=== PATIENT | female | born 1935 | race Two or more races ===

== ENCOUNTER 2017-02-19 17:38 | Inpatient (IN) | payer MEDICARE, MEDICAID ==
[~2017-02-19] VITALS: Ht 165.1 cm; Wt 77.1 kg
[~2017-02-19 17:38] MED LIST: METF500T4 PO; VALS160T2 PO
--- NOTE | 2017-02-19 17:45 | NUR ---
TORIN FROM HOME FOR S/P FALL WITH RIGHT EYEBROW LAC- NO KO, RIGHT ARM PAIN. SEEN BY MD FOR EVAL. PTAAOX3. DENIES OTHER PAIN. VSS. SAFETY AND COMFORT MEASURES PROVIDED. WILL MONITOR.
[2017-02-19] MEDS ORDERED: ONDANSETRON 4 MG TAB.RAPDIS SL ONE (18:30)
[2017-02-19] MEDS ORDERED: MORPHINE SULFATE INJ 2 MG/ML DISP.SYRIN IM ONE (18:30)
--- NOTE | 2017-02-19 18:30 | NUR ---
PT MEDICATED ORDERED.
[2017-02-19] MEDS ORDERED: ONDANSETRON 4 MG TAB.RAPDIS ONE (18:31)
[2017-02-19] MEDS ORDERED: MORPHINE SULFATE INJ 2 MG/ML DISP.SYRIN ONE (18:31)
[2017-02-19] MEDS ORDERED: LIDOCAINE /MPF 1% VIAL 5 ML VIAL ONE (18:58)
--- NOTE | 2017-02-19 19:18 | NUR ---
PAGED GAME PROTECTOR LUZ GARCIA FOR CONSULT
[2017-02-19 19:49] LABS: BASOPHILS % (AUTO) 0.2 % (0.0-2.0); EOSINOPHILS % (AUTO) 0.1 % (0.0-6.0); HEMATOCRIT 30 % (33-45); HEMOGLOBIN 9.8 g/dL (11.5-14.8); LYMPHOCYTES # (AUTO) 1.1 /CMM (0.8-4.8); LYMPHOCYTES % (AUTO) 13.3 % (20.0-44.0); MEAN CORPUSCULAR HEMOGLOBIN 28 PG (26.0-33.0); MEAN CORPUSCULAR HGB CONC 33 g/dl (31.0-36.0); MEAN CORPUSCULAR VOLUME 87 fL (82-100); MONOCYTES # (AUTO) 0.6 /CMM (0.1-1.30); MONOCYTES % (AUTO) 7.7 % (2.0-12.0); NEUTROPHILS # (AUTO) 6.7 /CMM (1.8-8.9); NEUTROPHILS % (AUTO) 78.7 % (43.0-81.0); PLATELET COUNT (AUTO) 248 /CMM (150-450); RDW COEFFICIENT OF VARIATION 14.1 (11.5-15.0); RED BLOOD CELL COUNT(AUTO) 3.48 MIL/uL (4.0-5.2); WHITE BLOOD COUNT (AUTO) 8.4 K/uL (4.3-11.0)
[2017-02-19] MEDS ORDERED: ACETAMINOPHEN 325 MG TABLET PO PRN (20:00)
[2017-02-19] MEDS ORDERED: MAGNESIUM HYDROXIDE 30 ML UDC PO PRN (20:00)
[2017-02-19] MEDS ORDERED: Z GUARD REMEDY 2 OZ OINT TP PRN (20:00)
[2017-02-19] MEDS ORDERED: ONDANSETRON HCL/PF 4 MG/2 ML VIAL IVP PRN (20:00)
[2017-02-19] MEDS ORDERED: MAG HYDROX/AL HYDROX/SIMETH 30 ML UDC PO PRN (20:00)
[2017-02-19] MEDS ORDERED: ZOLPIDEM TARTRATE 5 MG TABLET PO PRN (20:00)
[2017-02-19 20:03] LABS: CALCIUM, SERUM 8.6 mg/dL (8.5-10.1); CARBON DIOXIDE 26 mmol/L (21-32); CHLORIDE 103 mmol/L (98-107); CREATININE 1.3 mg/dL (0.6-1.3); GLUCOSE 197 mg/dL (74-106); POTASSIUM 4.4 mmol/L (3.5-5.1); SODIUM SERUM 138 mmol/L (136-145); UREA NITROGEN, BLOOD 27 mg/dL (7-18)
[2017-02-19 20:06] LABS: PROTHROMBIN TIME 10.4 SECS (9.5-12.7)
[2017-02-19 20:09] LABS: ALANINE AMINOTRANSFERASE 18 U/L (12-78); ALBUMIN 3.3 g/dL (3.4-5.0); ASPARTATE AMINOTRANSFERASE 19 U/L (15-37); BILIRUBIN,DIRECT 0.1 mg/dL (0.0-0.2); BILIRUBIN,TOTAL 0.3 mg/dL (0.2-1.0); TOTAL PROTEIN, SERUM 7.2 g/dL (6.4-8.2)
[2017-02-19 20:30] VITALS: BP 126/56
[2017-02-19] MEDS ORDERED: DEXTROSE 50%-WATER 50 ML DISP.SYRIN IV PRN (20:30)
[2017-02-19 20:32] LABS: ALKALINE PHOSPHATASE 54 U/L (46-116)
[2017-02-19] MEDS: IV NS 0.9% 1,000 ML IV PRN (20:48)
--- NOTE | 2017-02-19 21:00 | NUR ---
RN NOTE; ADMITTED A 81Y/O F. A, OX4, [place]URKM[place] SPEAKING. BREATHING EVENLY. NO SOB. NAD . SKIN WARM AND DRY TO TOUCH W/ R SHOULDER SLING IN PLACE. W/ A SMALL LACERATION AND BRUISES ON R EYEBROW AND EYE LID W/ ONE INTACT STITCH. W/ C/O SEVERE PAIN UPON REPOSITIONING AND ACTIVITIES OTHERWISE REMAINED PAIN FREE BY INACTIVITY. VS OBTAINED ALL WNL. LIMITED SKIN CHECK WAS PROVIDED DUE TO PAIN UPON REPOSITIONING, ALL MEDICAL INFO WERE OBTAINED FROM THE FAMILY AT THE BED SIDE DUE TO LANGUAGE BARRIER. NEEDS ATTENDED. CALL LIGHT WITHIN REACH. WILL CONT TO MONITOR AND WILL F/U W/ MD'S ORDERS.
[2017-02-19 21:30] VITALS: BP 126/56
[2017-02-19] MEDS: BLOOD SUGAR DIAGNOSTIC 1 EACH STRIP IN SCH (22:03)
[2017-02-19] MEDS: INSULIN REGULAR, HUMAN 100 UNIT/ML 3 ML VIAL SQ PRN (22:05)
[2017-02-20] MEDS ORDERED: ALPRAZOLAM 0.25 MG TABLET PO PRN (00:30)
[2017-02-20] MEDS: BLOOD SUGAR DIAGNOSTIC 1 EACH STRIP IN SCH ×4 (06:33→22:03)
[2017-02-20] MEDS: INSULIN REGULAR, HUMAN 100 UNIT/ML 3 ML VIAL SQ PRN ×3 (06:34→17:20)
--- NOTE | 2017-02-20 06:50 | NUR ---
RN NOTE; PT IN BED AWAKE AND ALERT. BREATHING EVENLY. R SHOULDER SLING IN PLACE. SKIN WARM AND DRY. NO C/O PAIN OR DISCOMFORT WHEN REMAINED UNTOUCHED AND INACTIVE. ON ONGOING IVF HYDRATION YADI WELL, NEEDS MET. CALL LIGHT WITHIN REACH, WILL CONT TO MONITOR AND WILL ENDORSE TO AM SHIFT FOR NUVIA,.
[2017-02-20 06:58] LABS: BASOPHILS % (AUTO) 0.1 % (0.0-2.0); HEMATOCRIT 27 % (33-45); HEMOGLOBIN 8.9 g/dL (11.5-14.8); LYMPHOCYTES # (AUTO) 1.2 /CMM (0.8-4.8); LYMPHOCYTES % (AUTO) 18.5 % (20.0-44.0); MEAN CORPUSCULAR HEMOGLOBIN 29 PG (26.0-33.0); MEAN CORPUSCULAR HGB CONC 33 g/dl (31.0-36.0); MEAN CORPUSCULAR VOLUME 86 fL (82-100); MONOCYTES # (AUTO) 0.6 /CMM (0.1-1.30); MONOCYTES % (AUTO) 9.7 % (2.0-12.0); NEUTROPHILS # (AUTO) 4.6 /CMM (1.8-8.9); NEUTROPHILS % (AUTO) 71.7 % (43.0-81.0); PLATELET COUNT (AUTO) 212 /CMM (150-450); RDW COEFFICIENT OF VARIATION 15.2 (11.5-15.0); RED BLOOD CELL COUNT(AUTO) 3.11 MIL/uL (4.0-5.2); WHITE BLOOD COUNT (AUTO) 6.4 K/uL (4.3-11.0)
[2017-02-20 07:25] LABS: CALCIUM, SERUM 8.1 mg/dL (8.5-10.1); CARBON DIOXIDE 23 mmol/L (21-32); CHLORIDE 105 mmol/L (98-107); CREATININE 1.3 mg/dL (0.6-1.3); GLUCOSE 186 mg/dL (74-106); MAGNESIUM 1.5 mg/dL (1.8-2.4); PHOSPHORUS 4.6 mg/dL (2.5-4.9); POTASSIUM 4.7 mmol/L (3.5-5.1); SODIUM SERUM 140 mmol/L (136-145); UREA NITROGEN, BLOOD 29 mg/dL (7-18)
--- NOTE | 2017-02-20 08:00 | NUR ---
MS RN NOTES PATIENT IN BED RESTING NO SOB OR ACUTE DISTRESS NOTED. RIGHT SHOULDER IN A SLING . PERIPHERAL IV LEFT AC INTACT PATIENT. BED IN LOW LOCKED POSITION CALL LIGHT WITHIN REACH. WILL CONTINUE TO MONITOR.
[2017-02-20] MEDS: METFORMIN 500 MG TABLET PO SCH ×2 (08:14→17:13)
[2017-02-20] MEDS: IV NS 0.9% 1,000 ML IV PRN (08:17)
[2017-02-20] MEDS: PANTOPRAZOLE 40 MG TABLET.DR PO SCH (08:17)
[2017-02-20] MEDS: VALSARTAN 80 MG TABLET PO SCH (08:17)
[2017-02-20 08:19] VITALS: BP 130/62
[2017-02-20 08:45] LABS: CHOLESTEROL 125 mg/dL (<200); HDL CHOLESTEROL 29 mg/dL (40-60); LDL 62 mg/dL (0-99); TRIGLYCERIDES 170 mg/dL (30-150)
[2017-02-20 09:52] LABS: THYROID STIMULATING HORMONE 0.19 uIU/mL (0.358-3.74)
[2017-02-20] MEDS: Magnesium 1GM/D5W 100ML PREMIX 100 ML IV SCH ×2 (10:50→11:56)
[2017-02-20] MEDS: HYDROCODONE/APAP 5/325MG 1 EACH TABLET PO PRN (11:00)
[2017-02-20] MEDS: MORPHINE SULFATE INJ 2 MG/ML DISP.SYRIN IV PRN ×2 (14:02→19:52)
[2017-02-20 16:14] VITALS: BP 129/63
--- NOTE | 2017-02-20 18:40 | NUR ---
MS RN NOTES PATIENT SEEN AND EVALUATED BY IVONE ESCOBAR HAND PAINT MIXER, ORDERS NOTED AND CARRIED OUT.
--- NOTE | 2017-02-20 19:49 | NUR ---
MS RN NOTES PATIENT IN BED RESTING WITH FAMILY AT BEDSIDE. ALL DUE MEDICATIONS ADMINISTERED. ALL NEEDS MET. PATIENTS PAIN CONTROLLED WITH MEDICATION WILL ENDORSE TO PM SHIFT NUVIA.
--- NOTE | 2017-02-20 19:56 | NUR ---
MS/RN RECEIVE PATIENT AWAKE, ALERT, ORIENTED, WITH C/O LEFT SHOULDER PAIN 10/10, MEDICATED WITH MORPHINE 2 MG IVP ORDERED, WILL MONITOR.
[2017-02-20 20:00] VITALS: BP 134/55
--- NOTE | 2017-02-20 22:00 | NUR ---
MS/RN BLOOD SUGAR 143, PATIENT REFUSED INSULIN. WILL MONITOR.
--- NOTE | 2017-02-21 | NUR ---
MS/RN PATIENT IS SLEEPING AT THIS TIME, AROUSABLE, APPEAR COMFORTABLE, NO SIGNS OF DISTRESS NOTED, CALL LIGHT IN REACH. WILL CONTINUE TO MONITOR.
[2017-02-21] MEDS: IV NS 0.9% 1,000 ML IV PRN ×2 (00:35→14:41)
--- NOTE | 2017-02-21 06:16 | NUR ---
MS/RN APPEAR SLEEPING, APPEAR COMFORTABLE, NO SIGNS OF DISTRESS NOTED, CALL LIGHT IN REACH. WILL CONTINUE TO MONITOR. ALL NEEDS ATTENDED AT THIS TIME. WILL CONTINUE TO MONITOR.
[2017-02-21 06:24] LABS: BASOPHILS % (AUTO) 0.1 % (0.0-2.0); HEMATOCRIT 24 % (33-45); LYMPHOCYTES % (AUTO) 12.8 % (20.0-44.0); MEAN CORPUSCULAR HEMOGLOBIN 29 PG (26.0-33.0); MEAN CORPUSCULAR HGB CONC 34 g/dl (31.0-36.0); MEAN CORPUSCULAR VOLUME 85 fL (82-100); MONOCYTES # (AUTO) 0.9 /CMM (0.1-1.30); MONOCYTES % (AUTO) 11.4 % (2.0-12.0); NEUTROPHILS # (AUTO) 5.9 /CMM (1.8-8.9); NEUTROPHILS % (AUTO) 75.7 % (43.0-81.0); PLATELET COUNT (AUTO) 194 /CMM (150-450); RDW COEFFICIENT OF VARIATION 15.3 (11.5-15.0); RED BLOOD CELL COUNT(AUTO) 2.76 MIL/uL (4.0-5.2); WHITE BLOOD COUNT (AUTO) 7.8 K/uL (4.3-11.0)
[2017-02-21 06:44] LABS: CALCIUM, SERUM 7.9 mg/dL (8.5-10.1); CREATININE 1.3 mg/dL (0.6-1.3); GLUCOSE 275 mg/dL (74-106); MAGNESIUM 1.8 mg/dL (1.8-2.4); UREA NITROGEN, BLOOD 20 mg/dL (7-18)
[2017-02-21 06:49] LABS: CARBON DIOXIDE 23 mmol/L (21-32); CHLORIDE 104 mmol/L (98-107); POTASSIUM 4.3 mmol/L (3.5-5.1); SODIUM SERUM 138 mmol/L (136-145)
[2017-02-21] MEDS: INSULIN REGULAR, HUMAN 100 UNIT/ML 3 ML VIAL SQ PRN ×4 (06:53→22:03)
[2017-02-21 08:00] VITALS: BP 125/65
--- NOTE | 2017-02-21 08:00 | NUR ---
RN MS NOTES PATIENT LAYING IN BED, AWAKE. NO ACUTE DISTRESS OR SOB NOTED. PERIPHERAL LINE ON LFA, INTACT PATENT. HAS RIGHT ARM SLING ON. BED IN LOW LOCKED POSITION. CALL LIGHT IN REACH. CONTINUING TO MONITOR.
[2017-02-21] MEDS: METFORMIN 500 MG TABLET PO SCH ×2 (08:35→16:58)
[2017-02-21] MEDS: PANTOPRAZOLE 40 MG TABLET.DR PO SCH (08:35)
[2017-02-21] MEDS: BLOOD SUGAR DIAGNOSTIC 1 EACH STRIP IN SCH ×4 (08:40→21:23)
[2017-02-21] MEDS: VALSARTAN 80 MG TABLET PO SCH (08:40)
[2017-02-21] MEDS: MORPHINE SULFATE INJ 2 MG/ML DISP.SYRIN IV PRN (08:51)
--- NOTE | 2017-02-21 10:30 | NUR ---
MS RN NOTES PATIENT SEEN AND EVALUATED BY EMMANUEL SMITH HOME HOS[facility] AIDE ORDERS NOTED AND CARRIED OUT.
[2017-02-21] MEDS: HYDROCODONE/APAP 10/325MG 1 EA TABLET PO PRN ×2 (14:26→21:24)
[2017-02-21 16:06] VITALS: BP 134/74
[2017-02-21] MEDS: HYDROCODONE/APAP 5/325MG 1 EACH TABLET PO PRN (16:58)
--- NOTE | 2017-02-21 18:33 | NUR ---
RN MS NOTES PATIENT SLEEPING IN BED. ALL NEEDS MET. ADMINISTERED ALL MEDS ORDERED. PAIN MANAGEMENT DONE, PRN MEDS GIVEN. HAS RIGHT ARM SLING ON FOR IMMOBILIZATION. WILL ENDORSE TO PM SHIFT.
--- NOTE | 2017-02-21 19:30 | NUR ---
RN NOTES RECEIVED PATIENT IN BED AWAKE, AO X 3, ABLE TO MAKE NEEDS KNOWN. NO ACUTE DISTRESS NOTED. BERT IN SLING. IV SITE PATENT, INTACT; IVF INFUSING ORDERED. SAFETY REMINDERS GIVEN. ON LOW BED WITH BILATERAL UPPER SIDE RAILS UP. CALL LIGHT WITHIN EASY REACH. WILL CONTINUE TO MONITOR.
[2017-02-21 20:00] VITALS: BP_SYST 129; BP_SYST 147; BP_DIAS 52; BP_DIAS 90
[2017-02-22] MEDS: IV NS 0.9% 1,000 ML IV PRN (05:29)
[2017-02-22] MEDS: HYDROCODONE/APAP 10/325MG 1 EA TABLET PO PRN (05:36)
--- NOTE | 2017-02-22 06:04 | NUR ---
RN NOTES PATIENT ASLEEP, EASILY AROUSABLE. RESPIRATIONS EVEN. NO SIGNS OF PAIN NOTED. DUE MED GIVEN WITH NO ASE NOTED. NEEDS ATTENDED. SAFETY PRECAUTIONS AND COMFORT MEASURES IN PLACE. WILL GIVE REPORT TO DAY SHIFT FOR CONTINUITY OF CARE.
[2017-02-22 06:23] LABS: BASOPHILS % (AUTO) 0.1 % (0.0-2.0); EOSINOPHILS % (AUTO) 0.1 % (0.0-6.0); HEMATOCRIT 23 % (33-45); HEMOGLOBIN 7.7 g/dL (11.5-14.8); LYMPHOCYTES # (AUTO) 1.5 /CMM (0.8-4.8); LYMPHOCYTES % (AUTO) 17.6 % (20.0-44.0); MEAN CORPUSCULAR HEMOGLOBIN 29 PG (26.0-33.0); MEAN CORPUSCULAR HGB CONC 34 g/dl (31.0-36.0); MEAN CORPUSCULAR VOLUME 87 fL (82-100); NEUTROPHILS # (AUTO) 6.1 /CMM (1.8-8.9); NEUTROPHILS % (AUTO) 70.2 % (43.0-81.0); PLATELET COUNT (AUTO) 223 /CMM (150-450); RDW COEFFICIENT OF VARIATION 15.4 (11.5-15.0); RED BLOOD CELL COUNT(AUTO) 2.64 MIL/uL (4.0-5.2); WHITE BLOOD COUNT (AUTO) 8.7 K/uL (4.3-11.0)
[2017-02-22 06:46] LABS: CALCIUM, SERUM 7.9 mg/dL (8.5-10.1); CARBON DIOXIDE 23 mmol/L (21-32); CHLORIDE 105 mmol/L (98-107); CREATININE 1.1 mg/dL (0.6-1.3); GLUCOSE 220 mg/dL (74-106); POTASSIUM 4.3 mmol/L (3.5-5.1); SODIUM SERUM 138 mmol/L (136-145); UREA NITROGEN, BLOOD 19 mg/dL (7-18)
[2017-02-22] MEDS: INSULIN REGULAR, HUMAN 100 UNIT/ML 3 ML VIAL SQ PRN ×3 (06:48→17:07)
[2017-02-22] MEDS: BLOOD SUGAR DIAGNOSTIC 1 EACH STRIP IN SCH ×3 (06:51→16:59)
--- NOTE | 2017-02-22 07:38 | NUR ---
ms rn received on bed, awake,alert,oriented x3,not in any form of distress, respirations even and unlabored,no sob noted.lungs are clear,abdomen soft,positive bowel sounds, denies pain at this time. right shoulder fracture w/ sling on, waiting for the shoulder brace to be delivered, before going home.all needs attended.
[2017-02-22 08:00] VITALS: BP 139/58
--- NOTE | 2017-02-22 09:00 | NUR ---
ms rn breakfast served, did not eat that much. due meds given tolerated well.
[2017-02-22] MEDS: VALSARTAN 80 MG TABLET PO SCH (10:16)
[2017-02-22] MEDS: PANTOPRAZOLE 40 MG TABLET.DR PO SCH (10:17)
[2017-02-22] MEDS: HYDROCODONE/APAP 5/325MG 1 EACH TABLET PO PRN (10:17)
[2017-02-22] MEDS: METFORMIN 500 MG TABLET PO SCH ×2 (10:17→16:58)
--- NOTE | 2017-02-22 10:30 | NUR ---
ms rn was seen by dr. samayoa. will be discharge today.
--- NOTE | 2017-02-22 11:30 | NUR ---
rn shoulder brace was delivered. patient was seen by pt,tolerated fairly.
--- NOTE | 2017-02-22 12:00 | NUR ---
ms medina blood sugar - 244 - 4 units regular insulin was given.
[2017-02-22 16:00] VITALS: BP 141/61
--- NOTE | 2017-02-22 17:30 | NUR ---
MS RN DUE MEDS GIVEN, BS - 170 - 3 UNITS OF REGULAR INSULIN GIVEN. PATIENT READY TO GO HOME.
--- NOTE | 2017-02-22 18:00 | NUR ---
MS RN PATIENT WENT HOME ACCOMPANIED BY FAMILY, DISCHARGE INSTRUCTIONS GIVEN AND W/ PAIN PILL RX,ALL NEEDS ATTENDED.
== END 2017-02-22 18:00 | disposition home or self-care (01) | DRG 563 ==
LOC: ER 17:41 → MED 20:28
PROVIDERS: ADMIT Internal Medicine; ATTEND Internal Medicine
DX: S42.351A Displaced comminuted fracture of shaft of humerus, right arm, initial encounter for closed fracture (principal); E11.65 Type 2 diabetes mellitus with hyperglycemia; D64.9 Anemia, unspecified; E44.1 Mild protein-calorie malnutrition; S42.211A Unspecified displaced fracture of surgical neck of right humerus, initial encounter for closed fracture; I10 Essential (primary) hypertension; M48.02 Spinal stenosis, cervical region; S01.111A Laceration without foreign body of right eyelid and periocular area, initial encounter; W01.0XXA Fall on same level from slipping, tripping and stumbling without subsequent striking against object, initial encounter; Y92.009 Unspecified place in unspecified non-institutional (private) residence as the place of occurrence of the external cause; Z79.84 Long term (current) use of oral hypoglycemic drugs; Y93.01 Activity, walking, marching and hiking; M25.78 Osteophyte, vertebrae; M19.90 Unspecified osteoarthritis, unspecified site; K21.9 Gastro-esophageal reflux disease without esophagitis; I25.10 Atherosclerotic heart disease of native coronary artery without angina pectoris; E78.5 Hyperlipidemia, unspecified; M50.30 Other cervical disc degeneration, unspecified cervical region; I70.0 Atherosclerosis of aorta; R93.8 Abnormal findings on diagnostic imaging of other specified body structures
CPT/HCPCS: 36415; 70450-TC; 71010-TC; 72125-TC; 73060-TC; 73200-TC; 76536-TC; 80048-TC; 80061-TC; 80076-TC; 82962-TC; 83735-TC; 84100-TC; 84439-TC; 84443-TC; 85025-TC; 85730-TC; 87081-TC; 93307-TC; A4217; A4606; A6402; A6403; J1815; J2270; J2405; J3475; J3490; J7030; Q0162; Z7610

== ENCOUNTER 2019-02-12 17:23 | Inpatient (IN) | payer MEDICARE, MEDICAID ==
[~2019-02-12] VITALS: Ht 167.6 cm; Wt 74.4 kg
[~2019-02-12 17:23] MED LIST changes: +METF-440 PO; -METF500T4 PO
--- NOTE | 2019-02-12 17:40 | NUR ---
BIB Daughter from home "Fell last night now pain worse. Has Hx of falls in Past" Patient a/ox3, breathing even and unlabored, no sob noted, patient c/o worsening back pain. Kept comfortable, attached to the monitor. changed into gown.
[2019-02-12] MEDS ORDERED: HYDROCODONE/APAP 5/325MG 1 EACH TABLET PO ONE (18:00)
[2019-02-12] MEDS ORDERED: HYDROCODONE/APAP 5/325MG 1 EACH TABLET ONE (18:06)
[2019-02-12 18:40] LABS: BASOPHILS % (AUTO) 0.2 % (0.0-2.0); HEMATOCRIT 29 % (33-45); LYMPHOCYTES # (AUTO) 1.1 /CMM (0.8-4.8); LYMPHOCYTES % (AUTO) 17.5 % (20.0-44.0); MEAN CORPUSCULAR HGB CONC 34 g/dl (31.0-36.0); MEAN CORPUSCULAR VOLUME 84 fL (82-100); MONOCYTES # (AUTO) 0.6 /CMM (0.1-1.30); MONOCYTES % (AUTO) 9.1 % (2.0-12.0); NEUTROPHILS # (AUTO) 4.4 /CMM (1.8-8.9); NEUTROPHILS % (AUTO) 73.2 % (43.0-81.0); PLATELET COUNT (AUTO) 168 /CMM (150-450); RED BLOOD CELL COUNT(AUTO) 3.49 MIL/uL (4.0-5.2); WHITE BLOOD COUNT (AUTO) 6.1 K/uL (4.3-11.0)
[2019-02-12 18:46] LABS: CALCIUM, SERUM 8.9 mg/dL (8.5-10.1); CARBON DIOXIDE 27 mmol/L (21-32); CHLORIDE 104 mmol/L (98-107); CREATININE 1.3 mg/dL (0.6-1.3); GLUCOSE 160 mg/dL (74-106); POTASSIUM 4.7 mmol/L (3.5-5.1); SODIUM SERUM 138 mmol/L (136-145); UREA NITROGEN, BLOOD 18 mg/dL (7-18)
--- NOTE | 2019-02-12 19:00 | NUR ---
rachel at bedside for eval
[2019-02-12] MEDS ORDERED: GABA600T12 PO (19:10)
[2019-02-12] MEDS ORDERED: LOSA100T31 PO (19:10)
[2019-02-12] MEDS ORDERED: OMEP40CA37 PO (19:10)
[2019-02-12] MEDS ORDERED: METO25TA6 PO (19:10)
[2019-02-12] MEDS ORDERED: hydrALAZINE HCL IV 20 MG VIAL IV ONE (19:30)
--- NOTE | 2019-02-12 19:39 | NUR ---
Patient's blood pressure elevated Dr. Díaz aware. Patient denies chest pain or discomfort at this time. Patient endorsed to Boris ELMORE for xander.
[2019-02-12] MEDS ORDERED: hydrALAZINE HCL IV 20 MG VIAL ONE (19:59)
[2019-02-12 20:00] VITALS: BP 137/74
--- NOTE | 2019-02-12 20:15 | NUR ---
REPORT GIVEN TO CATARINA FRANK FOR NUVIA.
[2019-02-12] MEDS ORDERED: ACETAMINOPHEN 325 MG TABLET PO PRN (20:30)
[2019-02-12] MEDS ORDERED: DEXTROSE 50%-WATER 50 ML DISP.SYRIN IV PRN (20:30)
[2019-02-12] MEDS ORDERED: MAGNESIUM HYDROXIDE 30 ML UDC PO PRN (20:30)
[2019-02-12] MEDS ORDERED: Z GUARD REMEDY 2 OZ OINT TP PRN (20:30)
[2019-02-12] MEDS ORDERED: MAG HYDROX/AL HYDROX/SIMETH 30 ML UDC PO PRN (20:30)
[2019-02-12] MEDS ORDERED: ZOLPIDEM TARTRATE 5 MG TABLET PO PRN (20:30)
--- NOTE | 2019-02-12 20:54 | NUR ---
PT TRANPORTED TO UNIT ON [facility] WITH EMT. PT STABLE FOR TRANSPORT.
[2019-02-12 21:00] VITALS: BP 154/72
[2019-02-12] MEDS: IV NS 0.9% 1,000 ML IV PRN (21:03)
[2019-02-12] MEDS: ENOXAPARIN SODIUM 40 MG/0.4 ML DISP.SYRIN SQ SCH (21:09)
[2019-02-12] MEDS: BLOOD SUGAR DIAGNOSTIC 1 EACH STRIP IN SCH (21:10)
[2019-02-12] MEDS: INSULIN REGULAR, HUMAN 100 UNIT/ML 3 ML VIAL SQ PRN (21:10)
[2019-02-12] MEDS: LOSARTAN POTASSIUM 50 MG TABLET PO SCH (21:14)
--- NOTE | 2019-02-12 21:45 | NUR ---
RECEIVE PT VIA GURNEENA FROM E.R WITH 2 DAUGHTER AT 2052 PT A/O X 3 GUATEMALAN SPEAKING UNDERSTAND LITTLE BELARUSIAN ADMIT TO MEDSURG. RESPIRATIONS EVEN AND UNLABORED, NO C/O OF PAIN AT THIS TIME. HEAD TO TOE ASSESSMENT IS DONE. KEPT CLEAN AND COMFORTABLE. SAFETY MEASURES AT ALL TIMES. WILL CONT TO MTR.
[2019-02-13] MEDS: MORPHINE SULFATE INJ 2 MG/ML DISP.SYRIN IV PRN (05:13)
[2019-02-13] MEDS: BLOOD SUGAR DIAGNOSTIC 1 EACH STRIP IN SCH ×4 (06:16→21:27)
[2019-02-13] MEDS: INSULIN REGULAR, HUMAN 100 UNIT/ML 3 ML VIAL SQ PRN ×4 (06:17→21:27)
[2019-02-13 06:24] LABS: APPEARANCE,URINE CLEAR (CLEAR); BILIRUBIN,URINE NEGATIVE (NEGATIVE); BLOOD, URINE NEGATIVE Ery/uL (NEGATIVE); COLOR,URINE YELLOW (YELLOW); KETONES,URINE NEGATIVE (NEGATIVE); LEUKOCYTE ESTERASE ,URINE NEGATIVE (NEGATIVE); NITRITE, URINE NEGATIVE (NEGATIVE); PROTEIN,URINE NEGATIVE (NEGATIVE); UGLUCOSE NEGATIVE (NEGATIVE); UROBILINOGEN,URINE 0.2 EU/dL (0.2)
--- NOTE | 2019-02-13 06:32 | NUR ---
MS RN PT SLEPT WELL THROUGHOUT THE NIGHT. PAIN MEDICATED WITH PRN PAIN MEDS WITH RELIEF. KEPT CLEAN AND DRY AND COMFORTABLE. NEEDS ATTENDED AND ANTICIPATED. NURSING CARE RENDERED, SAFETY MEASURES AT ALL TIMES. ENDORSE TO THE NEXT SHIFT.
[2019-02-13 07:18] LABS: BASOPHILS % (AUTO) 0.1 % (0.0-2.0); HEMATOCRIT 30 % (33-45); HEMOGLOBIN 10.1 g/dL (11.5-14.8); LYMPHOCYTES % (AUTO) 21.1 % (20.0-44.0); MEAN CORPUSCULAR HGB CONC 34 g/dl (31.0-36.0); MEAN CORPUSCULAR VOLUME 83 fL (82-100); MONOCYTES # (AUTO) 0.5 /CMM (0.1-1.30); NEUTROPHILS # (AUTO) 3.2 /CMM (1.8-8.9); NEUTROPHILS % (AUTO) 68.8 % (43.0-81.0); PLATELET COUNT (AUTO) 170 /CMM (150-450); RED BLOOD CELL COUNT(AUTO) 3.58 MIL/uL (4.0-5.2); WHITE BLOOD COUNT (AUTO) 4.6 K/uL (4.3-11.0)
[2019-02-13 07:49] LABS: ALANINE AMINOTRANSFERASE 18 U/L (12-78); ALBUMIN 3.3 g/dL (3.4-5.0); ALKALINE PHOSPHATASE 45 U/L (46-116); ASPARTATE AMINOTRANSFERASE 11 U/L (15-37); BILIRUBIN,TOTAL 0.4 mg/dL (0.2-1.0); CALCIUM, SERUM 8.7 mg/dL (8.5-10.1); CARBON DIOXIDE 23 mmol/L (21-32); CHLORIDE 104 mmol/L (98-107); CREATININE 1.1 mg/dL (0.6-1.3); GLUCOSE 146 mg/dL (74-106); PHOSPHORUS 3.6 mg/dL (2.5-4.9); SODIUM SERUM 139 mmol/L (136-145); TOTAL PROTEIN, SERUM 6.9 g/dL (6.4-8.2); UREA NITROGEN, BLOOD 15 mg/dL (7-18)
[2019-02-13 07:52] LABS: IRON, SERUM 33 ug/dl (50-175); TOTAL IRON BINDING CAPACITY 220 ug/dl (250-450)
[2019-02-13 07:55] LABS: CHOLESTEROL 128 mg/dL (<200); HDL CHOLESTEROL 32 mg/dL (40-60); LDL 62 mg/dL (0-99); TRIGLYCERIDES 219 mg/dL (30-150)
[2019-02-13 08:00] VITALS: BP 180/76
--- NOTE | 2019-02-13 08:00 | NUR ---
MS RN NOTES PATIENT IN BED AWAKE, ALERT AND ORIENTED X4. PATIENT STATES SHE HAS PAIN TO HER BACK /. MEDICATION WILL BE ADMINISTERED. PATIENT STATES SHE HAS NOT HAD ENOUGH SLEEP DUE TO PAIN. PERIPHERAL IV INTACT PATENT PRESCRIBED FLUIDS RUNNING. BED IN LOW LOCKED POSITION. WILL CONTINUE TO MONITOR AND CONTROL PAIN.
[2019-02-13] MEDS: PANTOPRAZOLE 40 MG TABLET.DR PO SCH (08:05)
[2019-02-13] MEDS: GABAPENTIN 300 MG CAPSULE PO SCH (08:05)
[2019-02-13] MEDS: LOSARTAN POTASSIUM 50 MG TABLET PO SCH (08:05)
[2019-02-13] MEDS: METOPROLOL TARTRATE 25 MG TABLET PO SCH ×2 (08:05→17:35)
[2019-02-13] MEDS: HYDROCODONE/APAP 5/325MG 1 EACH TABLET PO PRN (08:06)
[2019-02-13] MEDS ORDERED: VALSARTAN 80 MG TABLET PO SCH (09:00)
[2019-02-13 10:20] LABS: MAGNESIUM 1.2 mg/dL (1.8-2.4)
--- NOTE | 2019-02-13 10:50 | NUR ---
WOUND CARE CONSULT: PT PRESENTS WITH DRY SCAB TO LEFT LOWER LEG AND SKIN TEAR TO RT HAND, LARGE AREA OF BRUISING AND DISCOLORATION TO RT THIGH AND BUTTOCK, ALL PRESENT ON ADMISSION. RECOMMENDATIONS MADE FOR WOUND CARE AND SKIN PROTECTION. DISCUSSED WITH NURSING STAFF. PT IS CONTINENT. WILL SEE PRN. PERES IN AGREEMENT WITH PLAN OF CARE. Addendum: 02/13/19 at 1051 by YARED BARROSO WNDNU Amended: Links added.
[2019-02-13] MEDS: Magnesium 1GM/D5W 100ML PREMIX 100 ML IV SCH ×4 (11:35→17:34)
[2019-02-13] MEDS: ONDANSETRON HCL/PF 4 MG/2 ML VIAL IVP PRN ×2 (12:05→20:00)
[2019-02-13 13:03] LABS: THYROID STIMULATING HORMONE 1.232 uIU/mL (0.358-3.74)
[2019-02-13] MEDS: IV NS 0.9% 1,000 ML IV PRN (15:09)
[2019-02-13] MEDS ORDERED: CT SWABBABLE VALVE TRANS SET 1 EA INFUS.SET MC ONE (15:12)
[2019-02-13] MEDS ORDERED: IOHEXOL-300 100 ML VIAL IV ONE (15:12)
[2019-02-13 16:00] VITALS: BP 149/90
--- NOTE | 2019-02-13 18:50 | NUR ---
MS RN NOTES CALL PLACED TO EMMANUEL SMITH RELAYING RESULTS OF CT OF THE ABDOMEN WITH CONTRAST NO NEW ORDERS OBTAINED.
[2019-02-13] MEDS ORDERED: BISACODYL SUPP (10 MG) 10 MG/SUPP.RECT SUPP.RECT RC ONE (19:00)
--- NOTE | 2019-02-13 19:00 | NUR ---
MS RN OPENING NOTES Patient received sleeping in bed, family at bedside. Breathing even and unlabored. No distress noted, on room air. Peripheral IV infusing well. No signs of infection or infiltration. Safety measures in place; call light within reach. BEd in low, locked position. Will continue to monitor accordingly
--- NOTE | 2019-02-13 19:30 | NUR ---
MS RN NOTES PATIENT RESTING IN BED COMFORTABLE NO SOB OR ACUTE DISTRESS NOTED. PATIENT ALERT, ORIENTED X4. ALL DUE MEDICATIONS ADMINISTERED. ALL NEEDS MET. NO ACUTE CHANGES NOTED. ENDORSED CARE TO PM SHIFT.
[2019-02-13] MEDS: DOCUSATE SODIUM 100 MG CAPSULE PO SCH (19:48)
--- NOTE | 2019-02-13 20:00 | NUR ---
RN NOTES Patient c/o nausea, zofran 4mg given as ordered. Will continue to monitor
[2019-02-13] MEDS: hydrALAZINE HCL IV 20 MG VIAL IV PRN (20:22)
--- NOTE | 2019-02-13 20:22 | NUR ---
RN NOTES Patient's BP- 181/75, HR- 67. Apresoline 10mg IV given as ordered. Will continue to monitor accordingly
[2019-02-13 20:44] VITALS: BP 181/75
[2019-02-13] MEDS: ENOXAPARIN SODIUM 40 MG/0.4 ML DISP.SYRIN SQ SCH (21:09)
[2019-02-13 21:30] VITALS: BP 150/54
--- NOTE | 2019-02-13 21:30 | NUR ---
RN NOTES Patient's BP rechecked- 150/54, HR- 75. Will continue to monitor
[2019-02-14] MEDS: HYDROCODONE/APAP 5/325MG 1 EACH TABLET PO PRN ×3 (02:48→14:45)
[2019-02-14] MEDS: ONDANSETRON HCL/PF 4 MG/2 ML VIAL IVP PRN ×3 (03:01→14:34)
[2019-02-14] MEDS: IV NS 0.9% 1,000 ML IV PRN (06:04)
[2019-02-14] MEDS: BLOOD SUGAR DIAGNOSTIC 1 EACH STRIP IN SCH ×4 (06:30→21:31)
[2019-02-14] MEDS: INSULIN REGULAR, HUMAN 100 UNIT/ML 3 ML VIAL SQ PRN ×2 (06:30→21:31)
--- NOTE | 2019-02-14 06:33 | NUR ---
MS RN CLOSING NOTES Patient still sleeping in bed, easily arousable. Breathing even and unlabored. Not in any distress, on room air. Peripheral IV infusing at 75mL/hr. No complaints of pain or discomfort at this time. No acute changes overnight. All needs attended. All due meds given as ordered. Safety measures in place; call light within reach, bed in low, locked position. Will endorse NUVIA to oncoming RN
[2019-02-14 06:46] LABS: CALCIUM, SERUM 8.4 mg/dL (8.5-10.1); CARBON DIOXIDE 25 mmol/L (21-32); CHLORIDE 102 mmol/L (98-107); GLUCOSE 166 mg/dL (74-106); HEMATOCRIT 30 % (33-45); HEMOGLOBIN 10.4 g/dL (11.5-14.8); LYMPHOCYTES # (AUTO) 1.1 /CMM (0.8-4.8); MAGNESIUM 2.2 mg/dL (1.8-2.4); MEAN CORPUSCULAR HGB CONC 34 g/dl (31.0-36.0); MEAN CORPUSCULAR VOLUME 83 fL (82-100); MONOCYTES # (AUTO) 0.5 /CMM (0.1-1.30); MONOCYTES % (AUTO) 9.6 % (2.0-12.0); NEUTROPHILS % (AUTO) 71.4 % (43.0-81.0); PLATELET COUNT (AUTO) 191 /CMM (150-450); POTASSIUM 3.9 mmol/L (3.5-5.1); RED BLOOD CELL COUNT(AUTO) 3.61 MIL/uL (4.0-5.2); SODIUM SERUM 137 mmol/L (136-145); UREA NITROGEN, BLOOD 11 mg/dL (7-18); WHITE BLOOD COUNT (AUTO) 5.6 K/uL (4.3-11.0)
[2019-02-14] MEDS: PANTOPRAZOLE 40 MG TABLET.DR PO SCH (07:30)
[2019-02-14 08:00] VITALS: BP 168/72
--- NOTE | 2019-02-14 08:00 | NUR ---
PATIENT COMPLAINS OF NAUSEA. PRN ZOFRAN GIVEN . WILL CONTINUE TO MONITOR
[2019-02-14] MEDS: METOPROLOL TARTRATE 25 MG TABLET PO SCH ×2 (09:00→16:48)
[2019-02-14] MEDS: DOCUSATE SODIUM 100 MG CAPSULE PO SCH ×2 (09:00→16:47)
[2019-02-14] MEDS: SENNOSIDES/DOCUSATE SODIUM 1 TAB TABLET PO SCH (09:00)
[2019-02-14] MEDS: GABAPENTIN 300 MG CAPSULE PO SCH (09:00)
[2019-02-14] MEDS: LOSARTAN POTASSIUM 50 MG TABLET PO SCH (09:00)
[2019-02-14] MEDS ORDERED: POLYETHYLENE GLYCOL 3350 17 GM POWD.PACK PO SCH (09:00)
--- NOTE | 2019-02-14 10:00 | NUR ---
SPOKE WITH FOX Davila IF PAIN MEDICINE CAN BE GIVEN AROUND A CLOCK. PER FOX CONTINUE WITH PAIN MEDS NEEDED AND AMBULATE WITH TLSO BRACE.
[2019-02-14] MEDS: MORPHINE SULFATE INJ 2 MG/ML DISP.SYRIN IV PRN (11:13)
[2019-02-14 16:00] VITALS: BP 157/78
[2019-02-14] MEDS: METOCLOPRAMIDE HCL 10 MG/2 ML VIAL IV SCH ×2 (16:47→21:31)
--- NOTE | 2019-02-14 17:00 | NUR ---
per Hammad King. N.P. patient can start with clear liquids and advance as tolerated . Reglan Q6H.
--- NOTE | 2019-02-14 17:30 | NUR ---
patient's current BS is 153. Patient refused regular insulin injection. Patient states she does not take insulin at home. Education provided
--- NOTE | 2019-02-14 18:31 | NUR ---
patient tolerated clear liquid diet well with no N/V.
--- NOTE | 2019-02-14 18:56 | NUR ---
Patient resting in bed. Breathing even and unlabored on room air. No distress noted. Peripheral IV infusing at 75mL/hr. No complaints of pain at this time.First dose of Reglan administrated, patient was able to tolerate clear liquid diet. All needs attended. Safety measures implemented. Call light within reach, bed in low, locked position. Will endorse to next shift for xander.
--- NOTE | 2019-02-14 19:10 | NUR ---
MS RN OPENING NOTES Patient received resting in bed, family at bedside. Breathing even and unlabored. No distress noted, on room air. Peripheral IV infusing at 75mL/hr. Safety measures in place; call light within reach. Bed in low, locked position. Encourage to call for assistance. Will continue to monitor accordingly
[2019-02-14 20:00] VITALS: BP 188/80
[2019-02-14] MEDS: hydrALAZINE HCL IV 20 MG VIAL IV PRN (20:18)
--- NOTE | 2019-02-14 20:19 | NUR ---
RN NOTES Patient's BP- 188/80, HR- 74. Apresoline 10mg given as ordered. Will continue to monitor
[2019-02-14 21:30] VITALS: BP 155/76
[2019-02-14] MEDS: ENOXAPARIN SODIUM 40 MG/0.4 ML DISP.SYRIN SQ SCH (21:30)
--- NOTE | 2019-02-14 21:30 | NUR ---
RN NOTES V/S rechecked: BP- 155/76, HR- 71, SPO2- 96% on room air
--- NOTE | 2019-02-14 21:32 | NUR ---
RN NOTES BSL- 152mg/dl. No coverage given as patient refused medication
[2019-02-15] MEDS: MORPHINE SULFATE INJ 2 MG/ML DISP.SYRIN IV PRN ×3 (00:19→18:54)
[2019-02-15] MEDS: METOCLOPRAMIDE HCL 10 MG/2 ML VIAL IV SCH ×4 (04:06→21:59)
[2019-02-15] MEDS: IV NS 0.9% 1,000 ML IV PRN (05:11)
[2019-02-15] MEDS: BLOOD SUGAR DIAGNOSTIC 1 EACH STRIP IN SCH ×4 (06:47→22:00)
[2019-02-15] MEDS: INSULIN REGULAR, HUMAN 100 UNIT/ML 3 ML VIAL SQ PRN ×2 (06:48→22:06)
--- NOTE | 2019-02-15 06:49 | NUR ---
RN NOTES BSL- 158mg/dl. No coverage given as patient refused medication
[2019-02-15 06:59] LABS: BASOPHILS % (AUTO) 0.1 % (0.0-2.0); HEMATOCRIT 30 % (33-45); HEMOGLOBIN 10.3 g/dL (11.5-14.8); LYMPHOCYTES # (AUTO) 0.9 /CMM (0.8-4.8); LYMPHOCYTES % (AUTO) 14.3 % (20.0-44.0); MEAN CORPUSCULAR HGB CONC 34 g/dl (31.0-36.0); MEAN CORPUSCULAR VOLUME 83 fL (82-100); MONOCYTES # (AUTO) 0.6 /CMM (0.1-1.30); MONOCYTES % (AUTO) 10.4 % (2.0-12.0); NEUTROPHILS # (AUTO) 4.6 /CMM (1.8-8.9); NEUTROPHILS % (AUTO) 75.2 % (43.0-81.0); PLATELET COUNT (AUTO) 199 /CMM (150-450); RED BLOOD CELL COUNT(AUTO) 3.64 MIL/uL (4.0-5.2); WHITE BLOOD COUNT (AUTO) 6.1 K/uL (4.3-11.0)
[2019-02-15 07:19] LABS: CALCIUM, SERUM 8.6 mg/dL (8.5-10.1); CARBON DIOXIDE 24 mmol/L (21-32); CHLORIDE 99 mmol/L (98-107); CREATININE 1.1 mg/dL (0.6-1.3); GLUCOSE 169 mg/dL (74-106); POTASSIUM 3.8 mmol/L (3.5-5.1); SODIUM SERUM 135 mmol/L (136-145); UREA NITROGEN, BLOOD 14 mg/dL (7-18)
[2019-02-15 08:00] VITALS: BP 175/70
[2019-02-15] MEDS: SENNOSIDES/DOCUSATE SODIUM 1 TAB TABLET PO SCH (08:52)
[2019-02-15] MEDS: DOCUSATE SODIUM 100 MG CAPSULE PO SCH ×2 (08:53→16:24)
[2019-02-15] MEDS: METOPROLOL TARTRATE 25 MG TABLET PO SCH ×2 (08:53→16:25)
[2019-02-15] MEDS: GABAPENTIN 300 MG CAPSULE PO SCH (08:53)
[2019-02-15] MEDS: LOSARTAN POTASSIUM 50 MG TABLET PO SCH (08:54)
[2019-02-15] MEDS: PANTOPRAZOLE 40 MG TABLET.DR PO SCH (09:00)
--- NOTE | 2019-02-15 09:00 | NUR ---
FULL LIQUID DIET TOLERATED WELL. NO N/V NOTED
--- NOTE | 2019-02-15 15:00 | NUR ---
LAC #20 REMOVED DUE TO INFILTRATION. A NEW LINE TO THE RIGHT ARM ÓSCAR 22 FLUSHING WELL.
[2019-02-15 16:00] VITALS: BP 158/76
--- NOTE | 2019-02-15 17:36 | NUR ---
BSL- 148 mg/dl. No coverage given as patient refused Insulin. Education provided
--- NOTE | 2019-02-15 18:32 | NUR ---
Patient resting in bed. Breathing even and unlabored on room air. No distress noted. Peripheral IV fluid off at this time per patient's request, MD aware . No complaints of pain at this time. Patient was able to tolerate full liquid diet. All needs attended. Safety measures implemented. Call light within reach, bed in low, locked position. Will endorse to next shift for xander. Possible d/c tomorrow.
--- NOTE | 2019-02-15 19:08 | NUR ---
pain med administered per patient request
[2019-02-15 19:51] VITALS: BP 189/78
--- NOTE | 2019-02-15 20:00 | NUR ---
pt alert, oriented, with daughter at bedside, pain relief after morphine, left a/c site with ice pack from infiltration , new iv site intact and patent. bp elevated, denies any discomfort, prn meds noted will give as ordered, will continue to monitor, all needs attended. bed alarm active at all times.
[2019-02-15] MEDS: hydrALAZINE HCL IV 20 MG VIAL IV PRN (20:37)
[2019-02-15] MEDS: ENOXAPARIN SODIUM 40 MG/0.4 ML DISP.SYRIN SQ SCH (20:38)
--- NOTE | 2019-02-15 22:20 | NUR ---
pt refused insulin 3 units for sliding scale of 186mg/dl
--- NOTE | 2019-02-15 22:21 | NUR ---
report recieved from bennett medina. patient resting in bed in no apparent distress. alert and oriented x4 speaks setswana only. will cont monitoring and carry out orders.
[2019-02-15 22:40] VITALS: BP 143/67
[2019-02-16] MEDS: METOCLOPRAMIDE HCL 10 MG/2 ML VIAL IV SCH ×2 (04:20→11:37)
[2019-02-16] MEDS: BLOOD SUGAR DIAGNOSTIC 1 EACH STRIP IN SCH ×2 (06:26→11:44)
[2019-02-16] MEDS: INSULIN REGULAR, HUMAN 100 UNIT/ML 3 ML VIAL SQ PRN ×2 (06:27→11:43)
[2019-02-16] MEDS: PANTOPRAZOLE 40 MG TABLET.DR PO SCH (06:29)
--- NOTE | 2019-02-16 06:30 | NUR ---
RN PM CLOSING NOTE PATIENT IN BED IN STABLE CONDITION. AWAKE A/O X 4. NO SIGNS OF ACUTE DISTRESS. NO COMPLAIN OF PAIN OR DISCOMFORT AT THIS TIME. BACK BRACE AT THE BEDSIDE. PATIENT ONLY GOT UP TO USE BR X1. ALL NEEDS ATTENDED. CALL LIGHT WITHIN REACH. SAFETY MEASURES IN PLACE. WILL ENDORSE TO NEXT SHIFT FOR CONTINUITY OF CARE.
[2019-02-16 06:39] LABS: BASOPHILS % (AUTO) 0.1 % (0.0-2.0); HEMATOCRIT 31 % (33-45); HEMOGLOBIN 10.6 g/dL (11.5-14.8); LYMPHOCYTES # (AUTO) 1.4 /CMM (0.8-4.8); LYMPHOCYTES % (AUTO) 19.1 % (20.0-44.0); MEAN CORPUSCULAR HGB CONC 34 g/dl (31.0-36.0); MEAN CORPUSCULAR VOLUME 83 fL (82-100); MONOCYTES % (AUTO) 13.4 % (2.0-12.0); NEUTROPHILS % (AUTO) 67.4 % (43.0-81.0); PLATELET COUNT (AUTO) 209 /CMM (150-450); WHITE BLOOD COUNT (AUTO) 7.4 K/uL (4.3-11.0)
[2019-02-16 06:53] LABS: CALCIUM, SERUM 8.9 mg/dL (8.5-10.1); CARBON DIOXIDE 28 mmol/L (21-32); CHLORIDE 99 mmol/L (98-107); GLUCOSE 186 mg/dL (74-106); SODIUM SERUM 136 mmol/L (136-145); UREA NITROGEN, BLOOD 15 mg/dL (7-18)
--- NOTE | 2019-02-16 07:30 | NUR ---
patient in stable condition , noted with redness on left arm . Picture taken and placed in patient's chart. Wound consult ordered.
[2019-02-16 08:00] VITALS: BP 163/86
[2019-02-16] MEDS: SENNOSIDES/DOCUSATE SODIUM 1 TAB TABLET PO SCH (08:36)
[2019-02-16] MEDS: DOCUSATE SODIUM 100 MG CAPSULE PO SCH (08:36)
[2019-02-16 08:37] VITALS: BP 163/86
[2019-02-16] MEDS: METOPROLOL TARTRATE 25 MG TABLET PO SCH (08:37)
[2019-02-16] MEDS: LOSARTAN POTASSIUM 50 MG TABLET PO SCH (08:37)
[2019-02-16] MEDS: GABAPENTIN 300 MG CAPSULE PO SCH (08:38)
[2019-02-16] MEDS ORDERED: NEOMY SULF/BACITRAC ZN/POLY 15 GM TUBE TP SCH (09:00)
[2019-02-16] MEDS: MORPHINE SULFATE INJ 2 MG/ML DISP.SYRIN IV PRN (09:17)
[2019-02-16] MEDS ORDERED: SENN-168 PO (12:49)
[2019-02-16] MEDS ORDERED: DOCU-270 PO (12:49)
[2019-02-16] MEDS ORDERED: HYDR-3972 PO (12:49)
--- NOTE | 2019-02-16 15:50 | NUR ---
patient cleared by MD for D/C to home . Patient in stable condition with VS within baseline. Patient ambulatory with assistance with TLSO brace. Patient will f/u with PCP and has an appointment in clinic on 02/19/19 with , reminder given.Prescription provided to patient and also faxed to preferred pharmacy. IV line removed, ID wrist removed. Assisted patient to get ready. Education provided; pt verbalized understanding. D/C instructions and valuable form sighed. D/C pictures in the chart. Patient safely transferred to [facility] via wheelchaire accompanied by daughter and FAX MACHINE OPERATOR Karyn .
== END 2019-02-16 16:00 | disposition home or self-care (01) | DRG 543 ==
LOC: ER 17:30 → MED 20:02
PROVIDERS: ADMIT Nurse Practitioner Acute Care; ATTEND Nurse Practitioner Acute Care
DX: M48.54XA Collapsed vertebra, not elsewhere classified, thoracic region, initial encounter for fracture (principal); K56.7 Ileus, unspecified; E78.5 Hyperlipidemia, unspecified; I10 Essential (primary) hypertension; I25.10 Atherosclerotic heart disease of native coronary artery without angina pectoris; K21.9 Gastro-esophageal reflux disease without esophagitis; Z79.84 Long term (current) use of oral hypoglycemic drugs; D63.8 Anemia in other chronic diseases classified elsewhere; M19.90 Unspecified osteoarthritis, unspecified site; M79.3 Panniculitis, unspecified; W19.XXXA Unspecified fall, initial encounter; Y93.9 Activity, unspecified; Y92.009 Unspecified place in unspecified non-institutional (private) residence as the place of occurrence of the external cause; E11.9 Type 2 diabetes mellitus without complications
CPT/HCPCS: 36415; 71045-TC; 72131-TC; 73630-TC; 74018; 80048-TC; 80053-TC; 80061-TC; 81000-TC; 82962-TC; 83540-TC; 83690-TC; 83735-TC; 84100-TC; 84443-TC; 85025-TC; 87081-TC; 97116-TC; 97530-TC; G0378; J0360; J1650; J1815; J2270; J2405; J2765; J3475; J7030; Q9967

== ENCOUNTER 2019-06-11 04:29 | Inpatient (IN) | payer MEDICARE, MEDICAID ==
[~2019-06-11] VITALS: Ht 165.1 cm; Wt 72.1 kg
[~2019-06-11 04:29] MED LIST changes: +DOCU-270 PO; +GABA600T12 PO; +HYDR-3972 PO; +LOSA100T31 PO; +METO25TA6 PO; +OMEP40CA13 PO; +SENN-168 PO
--- NOTE | 2019-06-11 04:50 | NUR ---
HOGSHEAD INSPECTOR NOTES 0450 PATIENT ARRIVED ON THE UNIT AT 0445 VIA AMBULANCE GURNEY. PATIENT IS A DIRECT ADMIT FROM [facility] CATARINA DEVLIN, GAVE ME REPORT APPROXIMATELY 0335. PATIENT IS A/O X 4, MAINLY [place]IZEN OF [place] SPEAKING. NO SIGNS OF RESPIRATORY DISTRESS, NO SHORTNESS OF BREATH NOTED. VITALS UPON ADMISSION ARE: BP 173/56, PULSE 63, RESPIRATIONS 18, 98% OXYGEN SATURATION. DAUGHTER CHINYERE, AT BED SIDE TO ANSWER QUESTIONS FOR ME ON BEHALF OF DAUGHTER. DR. ROCHA IS DOCTOR, AWAITING ORDERS. NO COMPLAINTS OF PAIN AT THIS TIME. NO COMPLAINTS OF N/V/CHEST PAIN. DAUGHTER UNABLE TO PROVIDE HOME MEDICATIONS TAKEN AT THIS TIME. SAFETY PRECAUTIONS IMPLEMENTED; CALL LIGHT WITHIN REACH, BED LOWEST POSITION, BED LOCKED, BILATERAL UPPER SIDE RAILS UP. WILL CONTINUE TO MONITOR.
[2019-06-11] MEDS ORDERED: ONDANSETRON HCL/PF 4 MG/2 ML VIAL IVP PRN (06:00)
[2019-06-11] MEDS ORDERED: MAG HYDROX/AL HYDROX/SIMETH 30 ML UDC PO PRN (06:00)
[2019-06-11] MEDS ORDERED: MORPHINE SULFATE INJ 2 MG/ML DISP.SYRIN IV PRN (06:00)
[2019-06-11] MEDS ORDERED: DEXTROSE 50%-WATER 50 ML DISP.SYRIN IV PRN (06:00)
[2019-06-11] MEDS ORDERED: HYDROCODONE/APAP 5/325MG 1 EACH TABLET PO PRN ×2 (06:00)
[2019-06-11] MEDS ORDERED: Z GUARD REMEDY 2 OZ OINT TP PRN (06:00)
[2019-06-11] MEDS ORDERED: MAGNESIUM HYDROXIDE 30 ML UDC PO PRN (06:00)
[2019-06-11] MEDS ORDERED: ACETAMINOPHEN 325 MG TABLET PO PRN (06:00)
[2019-06-11] MEDS ORDERED: *INSULIN REGULAR(HUMULIN R)HUM 100 UNIT/ML VIAL SQ PRN (06:00)
[2019-06-11] MEDS: METOPROLOL TARTRATE 25 MG TABLET PO SCH ×3 (06:22→16:19)
[2019-06-11] MEDS: NITROGLYCERIN PACKET 1 GM PACKET TOP SCH ×3 (06:23→17:53)
--- NOTE | 2019-06-11 06:57 | NUR ---
RN CLOSING NOTES PATIENT IS CURRENTLY AWAKE, RESTING COMFORTABLY IN BED. ON ROOM AIR. NO SIGNS OF RESPIRATORY DISTRESS, NO SHORTNESS OF BREATH NOTED. NO COMPLAINTS OF ANY PAIN AT THIS TIME. ALL NEEDS MET AT THIS TIME. ALL DUE MEDS GIVEN AT THIS TIME, TOLERATED WELL, NO ADVERSE EFFECTS. SAFETY PRECAUTIONS IMPLEMENTED; CALL LIGHT WITHIN REACH, BED LOWEST POSITION, BED LOCKED, BILATERAL UPPER SIDE RAILS UP. WILL CONTINUE TO MONITOR. DAUGHTER STILL AT BED SIDE. WILL ENDORSE TO DAY SHIFT NURSE FOR CONTINUITY OF CARE.
--- NOTE | 2019-06-11 07:12 | NUR ---
ENDORSED CARE TO CATARINA GALINDO.
--- NOTE | 2019-06-11 07:49 | NUR ---
BLOCKING MACHINE OPERATOR NOTE RECEIVED PATIENT IN BED , ALERT ORIENTED ,ON TELE MONITOR HR 58 SB , RT FA HL INTACT AND FLUSHED WELL ,FAMILY AT BEDSIDE , PLAN OF CARE DISCUSSED WITH PATIENT ,ON RA NO SOB NOTED AT THIS TIME .ALL NEEDS ATTENDED BED LOWEST AND LOCKED POSITION ,CALL LIGHT WITHIN REACH
[2019-06-11 07:54] LABS: ALBUMIN 2.8 g/dL (3.4-5.0); BILIRUBIN,TOTAL 0.2 mg/dL (0.2-1.0); CALCIUM, SERUM 8.3 mg/dL (8.5-10.1); CREATININE 1.1 mg/dL (0.6-1.3); POTASSIUM 4.5 mmol/L (3.5-5.1); TOTAL PROTEIN, SERUM 6.2 g/dL (6.4-8.2)
[2019-06-11 08:00] VITALS: BP 158/61
[2019-06-11] MEDS: DOCUSATE SODIUM 100 MG CAPSULE PO SCH ×2 (08:27→16:20)
[2019-06-11] MEDS: ASPIRIN 325 MG TABLET PO SCH (08:27)
[2019-06-11] MEDS: PANTOPRAZOLE 40 MG TABLET.DR PO SCH (08:28)
[2019-06-11] MEDS: SENNOSIDES 8.6 MG TABLET PO SCH ×2 (08:29→16:20)
[2019-06-11] MEDS: GABAPENTIN 300 MG CAPSULE PO SCH (08:31)
[2019-06-11] MEDS: BLOOD SUGAR DIAGNOSTIC 1 EACH STRIP VI SCH ×4 (08:33→22:02)
--- NOTE | 2019-06-11 08:34 | NUR ---
HIMS CLERK NOTE REFUSED COLACE GABAPENTIN SENNA AND COVERAGE WITH INSULIN WILL F\U
--- NOTE | 2019-06-11 08:58 | NUR ---
BODY MECHANIC NOTE SADIQ ELMORE STOCK TAKER AT BEDSIDE, NOTIFIED THAT PATIENT TROP 0.810, HR 56 ,METOPROLOL HOLD AT THIS TIME , STATED ELIGIBILITY COUNSELOR WILL COME SOON WILL F\U
[2019-06-11] MEDS ORDERED: LOSARTAN POTASSIUM 50 MG TABLET PO SCH (09:00)
[2019-06-11] MEDS ORDERED: VALSARTAN 160 MG PO SCH (09:00)
--- NOTE | 2019-06-11 09:33 | NUR ---
PRODUCT DEVELOPMENT TECHNICIAN NOTE BP 185/66 HR 88, METOPROLOL GIVEN ORDERED
--- NOTE | 2019-06-11 11:16 | NUR ---
SCRAP WORKER NOTE DR GUADARRAMA AT BED SIDE AWARE THAT BP 185/66 WITH NEW ORDER GIVEN CONSENT SIGNED FOR CT ANGIO
--- NOTE | 2019-06-11 11:37 | NUR ---
telecommunications project manager note taken to ct angio rt ac [id number] hl inserted
[2019-06-11] MEDS ORDERED: IV NS 0.9% 250 ML IV ONE (11:48)
[2019-06-11] MEDS ORDERED: IOHEXOL-350 100 ML VIAL IV ONE (11:48)
[2019-06-11 11:53] LABS: IRON, SERUM 36 ug/dl (50-175); TOTAL IRON BINDING CAPACITY 179 ug/dl (250-450)
[2019-06-11 12:00] VITALS: BP 185/80
[2019-06-11] MEDS ORDERED: NITROGLYCERIN 0.4 MG/TAB BOTTLE ONE (12:00)
[2019-06-11] MEDS ORDERED: IV NS 0.9% 500 ML IV PRN (12:00)
[2019-06-11] MEDS ORDERED: METOPROLOL TARTRATE INJ 5 MG/5 ML AMPUL ONE ×2 (12:00→12:18)
[2019-06-11] MEDS ORDERED: NITROGLYCERIN 0.4 MG/TAB BOTTLE SL PRN (12:00)
[2019-06-11] MEDS: METOPROLOL TARTRATE INJ 5 MG/5 ML AMPUL IVP PRN ×4 (12:02→12:19)
[2019-06-11 12:06] LABS: FERRITIN 443 ng/mL (8-388)
--- NOTE | 2019-06-11 12:39 | NUR ---
PT TOLERATED cta HEART. vss 156/66 nsr AT 73 DENIES cP OR sob. NTG spray not given as pt had NTG patch on. transferred to [facility] via wheelchair
[2019-06-11] MEDS: VALSARTAN 80 MG TABLET PO SCH (12:59)
--- NOTE | 2019-06-11 14:29 | NUR ---
SURGICAL TECH NOTE [facility] FOR PAPAER WORK FROM LAST ADMISSION STATED THAT WILL DO BUT STILL NOT DONE, WILL F\U
--- NOTE | 2019-06-11 15:10 | NUR ---
RESIDENT CARE COORDINATOR NOTE [facility] CALLED ORDERED
[2019-06-11 15:38] LABS: APPEARANCE,URINE CLEAR (CLEAR); BILIRUBIN,URINE NEGATIVE (NEGATIVE); BLOOD, URINE NEGATIVE Ery/uL (NEGATIVE); COLOR,URINE YELLOW (YELLOW); KETONES,URINE NEGATIVE (NEGATIVE); LEUKOCYTE ESTERASE ,URINE NEGATIVE (NEGATIVE); NITRITE, URINE NEGATIVE (NEGATIVE); PROTEIN,URINE NEGATIVE (NEGATIVE); UGLUCOSE NEGATIVE (NEGATIVE); UROBILINOGEN,URINE 0.2 EU/dL (0.2)
[2019-06-11 16:00] VITALS: BP 150/79
[2019-06-11] MEDS: METFORMIN 500 MG TABLET PO SCH (16:19)
[2019-06-11] MEDS: INSULIN REGULAR, HUMAN 100 UNIT/ML 3 ML VIAL SQ PRN ×2 (17:56→22:24)
--- NOTE | 2019-06-11 19:25 | NUR ---
TELE/RN NOTES Patient in bed, Awake, A/O x3-4, No S/S of acute distress noted, breathing even and unlabored, No SOB noted, Denies any pain at this time, on tele monitoring with sinus rhythm. IV sites with no s/s of infection, infiltration. Safety maintained, bed at the lowest locked position. Clean and dry. Call light within reach, Will continue to monitor as per plan of care.
[2019-06-11 20:00] VITALS: BP 164/79
[2019-06-11] MEDS: CLONIDINE HCL 0.1 MG TABLET PO PRN (22:00)
[2019-06-12] VITALS (36 sets, daily range): BP systolic 132–182; BP diastolic 46–142
[2019-06-12] MEDS: NITROGLYCERIN PACKET 1 GM PACKET TOP SCH ×5 (00:27→23:14)
[2019-06-12 06:30] LABS: HEMATOCRIT 29 % (33-45); HEMOGLOBIN 9.5 g/dL (11.5-14.8); LYMPHOCYTES % (AUTO) 21.7 % (20.0-44.0); MEAN CORPUSCULAR HGB CONC 33 g/dl (31.0-36.0); MEAN CORPUSCULAR VOLUME 85 fL (82-100); MONOCYTES # (AUTO) 0.6 /CMM (0.1-1.30); MONOCYTES % (AUTO) 11.8 % (2.0-12.0); NEUTROPHILS # (AUTO) 3.2 /CMM (1.8-8.9); NEUTROPHILS % (AUTO) 66.5 % (43.0-81.0); PLATELET COUNT (AUTO) 171 /CMM (150-450); RED BLOOD CELL COUNT(AUTO) 3.37 MIL/uL (4.0-5.2); WHITE BLOOD COUNT (AUTO) 4.8 K/uL (4.3-11.0)
--- NOTE | 2019-06-12 07:01 | NUR ---
TELE/RN NOTES Patient remained in bed, resting comfortably, A/O x3-4, No S/S of acute distress noted, breathing even and unlabored, No SOB noted, Denies any pain at this time, on tele monitoring with sinus rhythm. IV sites with no s/s of infection, infiltration. Due meds given as ordered, tolerated well, Safety maintained, bed at the lowest locked position. Clean and dry. Call light within reach, Endorse to AM shift nurse for NUVIA
[2019-06-12 07:05] LABS: CALCIUM, SERUM 8.7 mg/dL (8.5-10.1); MAGNESIUM 1.5 mg/dL (1.8-2.4); PHOSPHORUS 3.5 mg/dL (2.5-4.9); POTASSIUM 4.2 mmol/L (3.5-5.1)
--- NOTE | 2019-06-12 07:20 | NUR ---
RN INITIAL NOTE PATIENT IN BED, ASLEEP BUT EASILY AROUSABLE TO NAME AND TOUCH. ON ROOM AIR. NO COMPLAINS OF ANY PAIN NOR SOB AT THIS TIME. ALBANIAN SPEAKING. ON TELE MONITOR, . HAS A RIGHT FA #22 AND RIGHT WRIST #22, BOTH SL. BED LOCKED AND IN LOWEST POSITION. CALL LIGHT WITHIN REACH. WILL CONTINUE TO MONITOR
[2019-06-12] MEDS: BLOOD SUGAR DIAGNOSTIC 1 EACH STRIP VI SCH ×4 (07:56→22:02)
--- NOTE | 2019-06-12 08:30 | NUR ---
RN NOTE CRITICAL LAB VALUE FOR TROPONIN OF 4.040. DR GUADARRAMA IS AWARE. PATIENT IS ASYMPTOMATIC. DR GUADARRAMA ORDERED CT ANGIO, AND NPO STARTING NOW. PATIENT IS AWARE. Addendum: 06/12/19 at 0929 by RALPH GUSMAN RN LEFT HEART CATH
[2019-06-12] MEDS: DOCUSATE SODIUM 100 MG CAPSULE PO SCH ×3 (08:44→17:00)
[2019-06-12] MEDS: PANTOPRAZOLE 40 MG TABLET.DR PO SCH (08:44)
[2019-06-12] MEDS: GABAPENTIN 300 MG CAPSULE PO SCH (08:44)
[2019-06-12] MEDS: SENNOSIDES 8.6 MG TABLET PO SCH ×3 (08:44→17:00)
[2019-06-12] MEDS: VALSARTAN 80 MG TABLET PO SCH (08:44)
[2019-06-12] MEDS: ASPIRIN 325 MG TABLET PO SCH (08:45)
[2019-06-12] MEDS: METFORMIN 500 MG TABLET PO SCH ×2 (08:45→17:36)
--- NOTE | 2019-06-12 08:45 | NUR ---
RN NOTE PATIENT IS AWARE THAT SHE IS NPO. SHE IS GOING FOR A CTA. INSULIN NOT GIVEN, PATIENT IS NPO
[2019-06-12] MEDS: Magnesium 1GM/D5W 100ML PREMIX 100 ML IV SCH ×2 (08:47→09:38)
[2019-06-12] MEDS: METOPROLOL TARTRATE 25 MG TABLET PO SCH ×2 (08:47→17:38)
[2019-06-12] MEDS ORDERED: CLOPIDOGREL BISULFATE 75 MG TABLET PO ONE ×2 (09:00→14:00)
[2019-06-12] MEDS ORDERED: IV NS 0.9% 1,000 ML ONE (11:20)
[2019-06-12] MEDS ORDERED: IV NS 0.9% 50 ML IV ONE (11:20)
[2019-06-12] MEDS ORDERED: IV SET PRIMARY PUMP SET 1 EA INFUS.SET MC ONE (11:20)
[2019-06-12] MEDS ORDERED: NITROGLYCERIN ICAR 1,000 MCG/10 ML VIAL ICAR ONE (11:21)
[2019-06-12] MEDS ORDERED: VERAPAMIL HCL IV 5 MG/2 ML VIAL ONE (11:21)
--- NOTE | 2019-06-12 11:34 | NUR ---
RN NOTE PATIENT WAS PICKED UP TO GO DO A CARDIAC CATH. FAMILY AT BEDSIDE, AWARE THAT PATIENT WILL GO TO ICU AFTER
[2019-06-12] MEDS ORDERED: IODIXANOL 150 ML IV ONE (11:36)
[2019-06-12] MEDS ORDERED: FENTANYL PF 100MCG/2ML AMPUL ONE (11:53)
[2019-06-12] MEDS ORDERED: HEPARIN SODIUM, PORCINE 1,000 UNIT/ML VIAL ONE (11:53)
[2019-06-12] MEDS ORDERED: MIDAZOLAM HCL 2 MG/2ML VIAL ONE (11:53)
[2019-06-12] MEDS ORDERED: LIDOCAINE HCL/PF 1% 30 ML SDV ONE (11:57)
[2019-06-12] MEDS ORDERED: ATROPINE SULFATE 1 MG/10 ML DISP.SYRIN ONE (12:25)
--- NOTE | 2019-06-12 13:05 | NUR ---
PATIENT TRANSFERRED FROM STYLE ADVISOR-S/P HEART CATH. LEFT TRANSRADIAL BAND INPLACE. NO BLEEDING/HEMATOMA NOTED.
--- NOTE | 2019-06-12 13:10 | NUR ---
ICU/RN: RECEIVED PT FROM CARDIAC ROLLER PRESSER OPERATOR. PT ALERT, AWAKE. ON ROOM AIR, NO DISTRESS NOTED. SINUS RHYTHM/SINUS DANIEL ON TELE. NO INTERVENTION DONE. LEFT WRIST TF BAND IN PLACE WITH 14CC AIR. NO S/S OF BLEEDING NOTED. PULSES PRESENT AND PALPABLE. ALL NEEDS WILL BE ATTENDED TO, SAFETY MEASURES TAKEN, BED IN LOW POSITION, SIDE RAILS UP, CALL LIGHT WITHIN REACH. WILL CONTINUE CARE.
[2019-06-12] MEDS ORDERED: IV NS 0.9% 500 ML IV ONE (14:00)
--- NOTE | 2019-06-12 17:15 | NUR ---
ICU/RN: LEFT TR BAND 1400-3CC AIR REMOVED, NO S/S OF BLEEDING NOTED 1415-3CC AIR REMOVED, NO S/S OF BLEEDING NOTED 1430-3CC AIR REMOVED, NO S/S OF BLEEDING NOTED 1452-3CC AIR REMOVED, NO S/S OF BLEEDING NOTED 1520-2CC AIR REMOVED, NO S/S OF BLEEDING NOTED 1700- TR BAND REMOVED, NO S/S OF BLEEDING NOTED. TRANSPARENT DRESSING APPLIED. WILL CONTINUE TO MONITOR AND ASSESS.
[2019-06-12] MEDS: INSULIN REGULAR, HUMAN 100 UNIT/ML 3 ML VIAL SQ PRN (17:39)
--- NOTE | 2019-06-12 18:00 | NUR ---
ICU/RN: PT REFUSED INSULIN. ASKED FOR METFORMIN. INFORMED PT WE NEED TO HOLD TILL AM. INFORMED MD AND ADMINISTERED METFORMIN INSTEAD OF INSULIN. DR. DOWNEY AWARE.
--- NOTE | 2019-06-12 19:30 | NUR ---
ICU/BUSINESS CONTINUITY DIRECTOR RECEIVED REPORT FROM DAY SHIFT NURSE. SEE FLOWSHEET FOR ASSESSMENT. THERE ARE NO SKIN ISSUES THAT NEEDS TO BE ADDRESSED. PT IS ALERT X4, MONTSERRATIAN SPEAKING. PT IS ON ROOM AIR, TOLERATING THIS WELL WITH SATURATION AT 94-97%. PT TURNS AND REPOSITIONS SELF INDEPENDENTLY. WILL CONTINUE TO MONITOR THIS PT. CALL LIGHT WITHIN REACH.
--- NOTE | 2019-06-12 19:53 | NUR ---
ICU/RN ENDING NOTES,AM BEDSIDE REPORT ENDORSED TO NIGHT NURSE. PT ALERT, AWAKE, FOLLOWS COMMANDS. SINUS ON TELE. VSS. PT RESTING COMFORTABLY IN BED ON ROOM AIR. ALL NEEDS ATTENDED TO. LEFT TR BAND REMOVED, NO S/S OF BLEEDING NOTED. BEDSIDE COMMODE REQUESTED. BED IN LOW POSITION, SIDE RAILS UP, CALL LIGHT WITHIN REACH. WILL CONTINUE CARE.
--- NOTE | 2019-06-12 21:10 | NUR ---
ICU/PIECE MEAT TRIMMER PT HAS GOOD STRONG PULSE TO LEFT WRIST, CONTINUING TO DOCUMENT PULSE CHECK TO LEFT WRIST TILL 2300. FAMILY AT BEDSIDE.
--- NOTE | 2019-06-12 22:02 | NUR ---
ICU/HOLD WORKER PT'S BLOOD SUGAR IS 165, PT REFUSED ANY INSULIN. EXPLAIN THE BENEFITS OF THE INSULIN THROUGH A COAL SHOOTER HOWEVER PT STILL REFUSED.
[2019-06-12] MEDS: CLONIDINE HCL 0.1 MG TABLET PO PRN (23:13)
--- NOTE | 2019-06-12 23:22 | NUR ---
ICU/BUILDING COORDINATOR PT'S BLOOD PRESSURE HAS BEEN CONSISTENT IN THE 160'S, PRN CATAPRES .1MG PO GIVEN FOR BP 164/71 ALSO AT THIS TIME GAVE NITRO 1 INCH TO CHEST WALL. PT CURRENTLY DENIES ANY HEADACHE. WILL CONTINUE TO MONITOR HIS PT. CALL LIGHT WITHIN REACH.
[2019-06-13] VITALS (10 sets, daily range): BP systolic 109–157; BP diastolic 50–75
--- NOTE | 2019-06-13 02:00 | NUR ---
ICU/GRAPHIC DESIGN PROFESSOR PT REFUSED AM CARE. CALL LIGHT WITHIN REACH. WILL CONTINUE TO MONITOR THIS PT. NO ACUTE DISTRESS SEEN AT THIS TIME. GOOD PULSES.
--- NOTE | 2019-06-13 04:10 | NUR ---
ICU/CONSULTANT INTERNSHIP AM LABS WERE DONE ON THIS PT. AWAIT FOR ANY ABNORMAL RESULTS.
[2019-06-13 04:29] LABS: HEMATOCRIT 28 % (33-45); HEMOGLOBIN 9.1 g/dL (11.5-14.8); LYMPHOCYTES # (AUTO) 0.9 /CMM (0.8-4.8); LYMPHOCYTES % (AUTO) 17.5 % (20.0-44.0); MEAN CORPUSCULAR HGB CONC 33 g/dl (31.0-36.0); MEAN CORPUSCULAR VOLUME 86 fL (82-100); MONOCYTES # (AUTO) 0.7 /CMM (0.1-1.30); MONOCYTES % (AUTO) 13.4 % (2.0-12.0); NEUTROPHILS # (AUTO) 3.4 /CMM (1.8-8.9); NEUTROPHILS % (AUTO) 69.1 % (43.0-81.0); PLATELET COUNT (AUTO) 165 /CMM (150-450); WHITE BLOOD COUNT (AUTO) 4.9 K/uL (4.3-11.0)
[2019-06-13 04:43] LABS: CALCIUM, SERUM 8.7 mg/dL (8.5-10.1); CREATININE 1.2 mg/dL (0.6-1.3); MAGNESIUM 1.9 mg/dL (1.8-2.4); PHOSPHORUS 3.1 mg/dL (2.5-4.9); POTASSIUM 4.7 mmol/L (3.5-5.1)
--- NOTE | 2019-06-13 06:16 | NUR ---
ICU/DIRECTOR GLOBAL DEVELOPMENT DR VALDES IS HERE TO SEE PT, AWAIT FOR ANY NEW ORDERS.
[2019-06-13] MEDS: BLOOD SUGAR DIAGNOSTIC 1 EACH STRIP VI SCH ×2 (07:44→11:43)
[2019-06-13] MEDS: PANTOPRAZOLE 40 MG TABLET.DR PO SCH (07:44)
[2019-06-13] MEDS: DOCUSATE SODIUM 100 MG CAPSULE PO SCH ×2 (08:23→09:00)
[2019-06-13] MEDS: METFORMIN 500 MG TABLET PO SCH (08:24)
[2019-06-13] MEDS: SENNOSIDES 8.6 MG TABLET PO SCH ×2 (08:24→09:00)
[2019-06-13] MEDS: VALSARTAN 80 MG TABLET PO SCH (08:24)
[2019-06-13] MEDS: METOPROLOL TARTRATE 25 MG TABLET PO SCH (08:24)
[2019-06-13] MEDS: GABAPENTIN 300 MG CAPSULE PO SCH (08:24)
--- NOTE | 2019-06-13 08:45 | NUR ---
ICU TRANSFER TO [facility] PT ARRIVED TO [facility] VIA W/C IN MEDICALLY STABLE CONDITION. PT IS A/OX4, AFEBRILE. RESPIRATIONS ARE EVEN AND UNLABORED, NOT IN ANY ACUTE DISTRESS NOTED. PT DENIES ANY PAIN AT THIS TIME, NO C/O SOB, N/V. IV SITE TO RFA INTACT, NO INFILTRATION NOTED. DRESSING KEPT CLEAN AND DRY. ABDOMEN IS SOFT AND NONDISTENDED, BOWEL SOUNDS ARE PRESENT IN ALL 4 QUADRANTS UPON AUSCULTATION. DENIES ANY BLADDER DISCOMFORT. SKIN KEPT CDI. SAFETY MEASURES ARE IN PLACE. NOTIFIED DTR [place] THAT PT HAS BEEN TRANSFERRED. INSTRUCTED PT TO USE CALL LIGHT WHEN ASSISTANCE IS NEEDED, CALL LIGHT IS LEFT WITHIN REACH. WILL MONITOR THROUGHOUT SHIFT. Addendum: 06/13/19 at 0901 by GILBERTO MARQUES RN CHECKED PT'S BELONGINGS. PER BELONGINGS LIST, PT HAD 2 RINGS UPON ADMISSION. PT HAS NO RINGS UPON ARRIVAL TO [facility]. SANTOSH MCKEON FROM ICU, STATED NO RINGS FOUND. WILL FOLLOW UP WITH FAMILY.
--- NOTE | 2019-06-13 08:55 | NUR ---
RN NOTE 0715: Received patient awake, A/Ox3, Swedish speaking. VSS. PIV intact. Tolerated room air. Denies CP/discomfort at this time. S/E by Dr. Mullins, obtained order for transfer to [place], made nurse sup aware, awaiting bed. 0845: Transferred patient to [facility], report given to Helena ELMORE for NUVIA. VSS. Due meds given, refused Colace and Senna. Transferred via wheelchair, no CP or any discomfort. Tolerated diet, 75%.
[2019-06-13] MEDS ORDERED: CLOPIDOGREL BISULFATE 75 MG TABLET PO SCH (09:00)
[2019-06-13] MEDS ORDERED: ASPIRIN 81 MG TAB.CHEW PO SCH (09:00)
[2019-06-13] MEDS ORDERED: CLOP75TA15 PO (10:40)
--- NOTE | 2019-06-13 14:10 | NUR ---
MS SAMPLE PROCESSOR NOTE PT DISCHARGED TO HOME ACCOMPANIED BY DAUGHTER CHINYERE. PT IS A/OX4, AFEBRILE. RESPIRATIONS ARE EVEN AND UNLABORED, NOT IN ANY ACUTE DISTRESS NOTED. PT DENIES ANY PAIN, NO C/O SOB, N/V. PUPILS ARE REACTIVE TO LIGHT, BILATERAL HAND REFERRAL CLERK ARE STRONG AND EQUAL. PT DENIES ANY HEADACHES. ABDOMEN IS SOFT AND NONDISTENDED, BOWEL SOUNDS ARE PRESENT IN ALL 4 QUADRANTS UPON AUSCULTATION. DENIES ANY BLADDER DISCOMFORT. PT IS AMBULATORY, STEADY GAIT. SKIN KEPT CDI, NO OPEN AREAS NOTED. IV ACCESS REMOVED, APPLIED PRESSURE AND TOLERATED WELL. ID BANDS REMOVED. EXPLAINED DISCHARGE PAPERWORK TO PT AND DTR CHINYERE WITH VERBAL AND WRITTEN UNDERSTANDING. INSTRUCTED PT AND DTR TO CALL [facility] FOR F/U APPT AND EDUCATED PT ON NEW MEDICATION OF PLAVIX. PER DTR CHINYERE, ANOTHER FAMILY MEMBER TOOK PT'S 2 RINGS HOME. NO OTHER BELONGINGS LISTED. ACCOMPANIED PT VIA W/C TO PERSONAL VEHICLE W/ 1 STAFF ASSIST. PT LEFT IN MEDICALLY STABLE CONDITION.
== END 2019-06-13 14:10 | disposition home or self-care (01) | DRG 281 ==
LOC: TELE1 04:36 → ICU 06-12 12:57 → MEDSG2 06-13 08:42
PROVIDERS: ADMIT Nurse Practitioner Acute Care; ATTEND Student in an Organized Health Care Education/Training Program
PROC: 4A023N7 Measurement of Cardiac Sampling and Pressure, Left Heart, Percutaneous Approach (ICD-10-PCS; principal; 2019-06-12)
PROC: B211YZZ Fluoroscopy of Multiple Coronary Arteries using Other Contrast (ICD-10-PCS; 2019-06-12)
DX: I21.4 Non-ST elevation (NSTEMI) myocardial infarction (principal); E44.0 Moderate protein-calorie malnutrition; M48.54XA Collapsed vertebra, not elsewhere classified, thoracic region, initial encounter for fracture; I10 Essential (primary) hypertension; R79.89 Other specified abnormal findings of blood chemistry; R51 Headache; E11.65 Type 2 diabetes mellitus with hyperglycemia; I25.10 Atherosclerotic heart disease of native coronary artery without angina pectoris; M19.90 Unspecified osteoarthritis, unspecified site; I25.2 Old myocardial infarction; K21.9 Gastro-esophageal reflux disease without esophagitis; Z79.84 Long term (current) use of oral hypoglycemic drugs; N28.1 Cyst of kidney, acquired; E88.09 Other disorders of plasma-protein metabolism, not elsewhere classified; Z68.26 Body mass index [BMI] 26.0-26.9, adult
CPT/HCPCS: 36415; 75574; 80048-TC; 80053-TC; 80061-TC; 81000-TC; 82728-TC; 82962-TC; 83540-TC; 83735-TC; 84100-TC; 84484-TC; 85025-TC; 85652-TC; 87081-TC; 93307-TC; 93452; A4216; C1887; G0378; J0461; J1644; J1815; J2250; J3010; J3475; J3490; J7030; J7050; Q9967

== ENCOUNTER 2023-03-24 10:42 | Emergency (ER) | payer MEDICARE, OTHER ==
[~2023-03-24] VITALS: Ht 162.6 cm; Wt 60.3 kg
[~2023-03-24 10:42] MED LIST changes: +CLOP75TA15 PO; -OMEP40CA13 PO; +OMEP40CA21 PO; -SENN-168 PO; +SENN-261 PO
[2023-03-24 11:24] LABS: BASOPHILS % (AUTO) 0.1 % (0.0-2.0); HEMATOCRIT 29 % (33-45); HEMOGLOBIN 9.6 g/dL (11.5-14.8); LYMPHOCYTES # (AUTO) 0.6 K/uL (0.8-4.8); LYMPHOCYTES % (AUTO) 7.6 % (20.0-44.0); MEAN CORPUSCULAR HEMOGLOBIN 28 PG (26.0-33.0); MEAN CORPUSCULAR HGB CONC 33 g/dl (31.0-36.0); MEAN CORPUSCULAR VOLUME 84 fL (82-100); MONOCYTES # (AUTO) 0.5 K/uL (0.1-1.30); MONOCYTES % (AUTO) 6.8 % (2.0-12.0); NEUTROPHILS # (AUTO) 6.7 K/uL (1.8-8.9); NEUTROPHILS % (AUTO) 85.5 % (43.0-81.0); PLATELET COUNT (AUTO) 253 K/uL (150-450); RED BLOOD CELL COUNT(AUTO) 3.44 MIL/uL (4.0-5.2); RED CELL DISTRIBUTION WIDTH 15.8 % (11.5-15.0); WHITE BLOOD COUNT (AUTO) 7.9 K/uL (4.3-11.0)
[2023-03-24] MEDS ORDERED: ACETAMINOPHEN ES 500 MG TABLET PO ONE (11:30)
[2023-03-24 11:35] LABS: CARBON DIOXIDE 21 mmol/L (21-32); CHLORIDE 103 mmol/L (98-107); CREATININE 1.1 mg/dL (0.6-1.3); GLUCOSE 123 mg/dL (74-106); POTASSIUM 4.6 mmol/L (3.5-5.1); SODIUM SERUM 133 mmol/L (136-145); UREA NITROGEN, BLOOD 17 mg/dL (7-18)
[2023-03-24 11:42] LABS: ALANINE AMINOTRANSFERASE 16 U/L (12-78); ALBUMIN 3.4 g/dL (3.4-5.0); ALKALINE PHOSPHATASE 67 U/L (46-116); ASPARTATE AMINOTRANSFERASE 17 U/L (15-37); BILIRUBIN,DIRECT 0.1 mg/dL (0.0-0.2); BILIRUBIN,TOTAL 0.3 mg/dL (0.2-1.0); TOTAL PROTEIN, SERUM 7.2 g/dL (6.4-8.2)
[2023-03-24] MEDS ORDERED: ACETAMINOPHEN ES 500 MG TABLET ONE (12:06)
[2023-03-24 15:20] VITALS: BP 131/68; TEMP 98.7; O2SAT 100
== END 2023-03-24 15:20 | disposition home or self-care (01) ==
LOC: ER 10:44
DX: S09.90XA Unspecified injury of head, initial encounter (principal); F03.90 Unspecified dementia, unspecified severity, without behavioral disturbance, psychotic disturbance, mood disturbance, and anxiety; I10 Essential (primary) hypertension; E78.5 Hyperlipidemia, unspecified; E11.9 Type 2 diabetes mellitus without complications; G43.909 Migraine, unspecified, not intractable, without status migrainosus; M19.90 Unspecified osteoarthritis, unspecified site; Z79.84 Long term (current) use of oral hypoglycemic drugs; Z79.899 Other long term (current) drug therapy
CPT/HCPCS: 36415; 70450-TC; 71045-TC; 72125-TC; 72192-TC; 80048-TC; 80076-TC; 82962-TC; 84484-TC; 85025-TC

== ENCOUNTER 2024-03-15 13:47 | Inpatient (IN) | payer MEDICARE, OTHER ==
[~2024-03-15] VITALS: Ht 160 cm; Wt 77.8 kg
[2024-03-15 14:53] LABS: BASOPHILS % (AUTO) 0.1 % (0.0-2.0); HEMATOCRIT 31 % (33-45); HEMOGLOBIN 10.2 g/dL (11.5-14.8); LYMPHOCYTES # (AUTO) 1.2 K/uL (0.8-4.8); LYMPHOCYTES % (AUTO) 22.7 % (20.0-44.0); MEAN CORPUSCULAR HEMOGLOBIN 27 PG (26.0-33.0); MEAN CORPUSCULAR HGB CONC 33 g/dl (31.0-36.0); MEAN CORPUSCULAR VOLUME 83 fL (82-100); MONOCYTES # (AUTO) 0.8 K/uL (0.1-1.30); NEUTROPHILS # (AUTO) 3.5 K/uL (1.8-8.9); NEUTROPHILS % (AUTO) 63.2 % (43.0-81.0); PLATELET COUNT (AUTO) 191 K/uL (150-450); RED BLOOD CELL COUNT(AUTO) 3.74 MIL/uL (4.0-5.2); RED CELL DISTRIBUTION WIDTH 16.3 % (11.5-15.0); WHITE BLOOD COUNT (AUTO) 5.5 K/uL (4.3-11.0)
[2024-03-15 15:00] LABS: CALCIUM, SERUM 8.7 mg/dL (8.5-10.1); CARBON DIOXIDE 25 mmol/L (21-32); CHLORIDE 96 mmol/L (98-107); CREATININE 1.3 mg/dL (0.6-1.3); GLUCOSE 141 mg/dL (74-106); POTASSIUM 4.4 mmol/L (3.5-5.1); SODIUM SERUM 129 mmol/L (136-145); UREA NITROGEN, BLOOD 20 mg/dL (7-18)
[2024-03-15 15:07] LABS: INR 1.02 (0.91-1.10); PARTIAL THROMBOPLASTIN TIME 27.5 SEC (24.3-34.3); PROTHROMBIN TIME 10.8 SECS (9.2-11.1)
[2024-03-15 15:12] LABS: ALANINE AMINOTRANSFERASE 17 U/L (12-78); ALBUMIN 3.4 g/dL (3.4-5.0); ALKALINE PHOSPHATASE 79 U/L (46-116); ASPARTATE AMINOTRANSFERASE 12 U/L (15-37); BILIRUBIN,DIRECT 0.1 mg/dL (0.0-0.2); BILIRUBIN,TOTAL 0.3 mg/dL (0.2-1.0); NT-PRO BNP 1353 pg/mL (0-125); TOTAL PROTEIN, SERUM 6.9 g/dL (6.4-8.2)
[2024-03-15] MEDS ORDERED: ATOR80TA PO (15:43)
[2024-03-15] MEDS ORDERED: OMEP20CA15 PO (15:43)
[2024-03-15] MEDS ORDERED: KERENDIA PO (15:43)
[2024-03-15] MEDS ORDERED: OLME40TA12 PO (15:43)
[2024-03-15] MEDS ORDERED: SITA100T PO (15:43)
[2024-03-15] MEDS ORDERED: HYDR-4077 PO (15:43)
[2024-03-15] MEDS ORDERED: MIRT7.5T10 PO (15:43)
[2024-03-15] MEDS ORDERED: MEMA5TAB42 PO (15:43)
[2024-03-15] MEDS ORDERED: CARV25TA PO (15:43)
[2024-03-15] MEDS ORDERED: Z GUARD REMEDY 4 OZ OINT TP PRN (17:30)
[2024-03-15] MEDS ORDERED: MAG HYDROX/AL HYDROX/SIMETH 30 ML UDC PO PRN (17:30)
[2024-03-15] MEDS ORDERED: ZOLPIDEM TARTRATE 5 MG TABLET PO PRN (17:30)
[2024-03-15] MEDS ORDERED: MAGNESIUM HYDROXIDE 30 ML UDC PO PRN (17:30)
[2024-03-15] MEDS ORDERED: ONDANSETRON HCL/PF 4 MG/2 ML VIAL IVP PRN (17:30)
[2024-03-15] MEDS: ENOXAPARIN SODIUM 30 MG/0.3 ML DISP.SYRIN SQ SCH (18:17)
[2024-03-15] MEDS ORDERED: hydrALAZINE HCL IV 20 MG VIAL IV PRN (19:00)
[2024-03-15 19:09] LABS: NT-PRO BNP 1330 pg/mL (0-125)
[2024-03-15 20:00] VITALS: BP 150/90; TEMP 97.9; O2SAT 96
[2024-03-15] MEDS: hydrALAZINE HCL IV 20 MG VIAL IV PRN (20:26)
[2024-03-16] VITALS: BP 155/54; TEMP 98.1; O2SAT 95
[2024-03-16 04:00] VITALS: BP 156/89; TEMP 98.1; O2SAT 96
[2024-03-16 06:22] LABS: HEMATOCRIT 31 % (33-45); LYMPHOCYTES # (AUTO) 1.2 K/uL (0.8-4.8); LYMPHOCYTES % (AUTO) 26.9 % (20.0-44.0); MEAN CORPUSCULAR HEMOGLOBIN 27 PG (26.0-33.0); MEAN CORPUSCULAR HGB CONC 33 g/dl (31.0-36.0); MEAN CORPUSCULAR VOLUME 83 fL (82-100); MONOCYTES # (AUTO) 0.6 K/uL (0.1-1.30); MONOCYTES % (AUTO) 14.1 % (2.0-12.0); NEUTROPHILS # (AUTO) 2.6 K/uL (1.8-8.9); PLATELET COUNT (AUTO) 185 K/uL (150-450); RED BLOOD CELL COUNT(AUTO) 3.71 MIL/uL (4.0-5.2); WHITE BLOOD COUNT (AUTO) 4.5 K/uL (4.3-11.0)
[2024-03-16] MEDS ORDERED: MIRTAZAPINE 15 MG TABLET PO SCH (06:30)
[2024-03-16 06:34] LABS: CALCIUM, SERUM 8.9 mg/dL (8.5-10.1); CARBON DIOXIDE 22 mmol/L (21-32); CHLORIDE 101 mmol/L (98-107); CREATININE 1.2 mg/dL (0.6-1.3); GLUCOSE 120 mg/dL (74-106); MAGNESIUM 1.8 mg/dL (1.8-2.4); POTASSIUM 4.4 mmol/L (3.5-5.1); SODIUM SERUM 133 mmol/L (136-145); UREA NITROGEN, BLOOD 20 mg/dL (7-18)
[2024-03-16] MEDS: PANTOPRAZOLE 40 MG TABLET.DR PO SCH (07:36)
[2024-03-16 08:00] VITALS: BP 204/67; TEMP 98.3; O2SAT 96
[2024-03-16] MEDS: FUROSEMIDE 40 MG/4 ML VIAL IV SCH (08:14)
[2024-03-16] MEDS: LINAGLIPTIN 5 MG TABLET PO SCH (08:15)
[2024-03-16] MEDS: MEMANTINE HCL 5 MG TABLET PO SCH (08:15)
[2024-03-16] MEDS: LOSARTAN POTASSIUM 50 MG TABLET PO SCH (08:15)
[2024-03-16] MEDS: hydrALAZINE HCL 50 MG TABLET PO SCH (08:15)
[2024-03-16] MEDS: CARVEDILOL 12.5 MG TABLET PO SCH (08:16)
[2024-03-16 10:09] LABS: PHOSPHORUS 4.2 mg/dL (2.5-4.9)
[2024-03-16] MEDS ORDERED: ENOXAPARIN SODIUM 40 MG/0.4 ML DISP.SYRIN SQ SCH (12:00)
[2024-03-16] MEDS: ATORVASTATIN 40 MG TABLET PO SCH (17:29)
[2024-03-16 20:00] VITALS: BP_SYST 146; BP_SYST 164; BP_DIAS 49; BP_DIAS 50; TEMP 98.1; TEMP 98.4; O2SAT 95; O2SAT 96
[2024-03-17] VITALS (8 sets, daily range): BP systolic 149–201; BP diastolic 52–93; TEMP 98–98.6; O2SAT 96–99
[2024-03-17 06:50] LABS: HEMATOCRIT 30 % (33-45); LYMPHOCYTES # (AUTO) 1.3 K/uL (0.8-4.8); LYMPHOCYTES % (AUTO) 24.6 % (20.0-44.0); MEAN CORPUSCULAR HEMOGLOBIN 28 PG (26.0-33.0); MEAN CORPUSCULAR HGB CONC 33 g/dl (31.0-36.0); MEAN CORPUSCULAR VOLUME 82 fL (82-100); MONOCYTES # (AUTO) 0.7 K/uL (0.1-1.30); MONOCYTES % (AUTO) 12.6 % (2.0-12.0); NEUTROPHILS # (AUTO) 3.4 K/uL (1.8-8.9); NEUTROPHILS % (AUTO) 62.8 % (43.0-81.0); PLATELET COUNT (AUTO) 194 K/uL (150-450); RED BLOOD CELL COUNT(AUTO) 3.62 MIL/uL (4.0-5.2); RED CELL DISTRIBUTION WIDTH 16.3 % (11.5-15.0); WHITE BLOOD COUNT (AUTO) 5.4 K/uL (4.3-11.0)
[2024-03-17 07:49] LABS: ALANINE AMINOTRANSFERASE 16 U/L (12-78); ALBUMIN 3.3 g/dL (3.4-5.0); ALKALINE PHOSPHATASE 71 U/L (46-116); ASPARTATE AMINOTRANSFERASE 15 U/L (15-37); BILIRUBIN,TOTAL 0.3 mg/dL (0.2-1.0); CALCIUM, SERUM 8.7 mg/dL (8.5-10.1); CARBON DIOXIDE 25 mmol/L (21-32); CHLORIDE 94 mmol/L (98-107); CREATININE 1.4 mg/dL (0.6-1.3); GLUCOSE 129 mg/dL (74-106); MAGNESIUM 1.5 mg/dL (1.8-2.4); PHOSPHORUS 3.7 mg/dL (2.5-4.9); POTASSIUM 4.3 mmol/L (3.5-5.1); SODIUM SERUM 125 mmol/L (136-145); TOTAL PROTEIN, SERUM 6.9 g/dL (6.4-8.2); UREA NITROGEN, BLOOD 24 mg/dL (7-18)
[2024-03-17] MEDS: FUROSEMIDE 40 MG/4 ML VIAL IV SCH (08:07)
[2024-03-17] MEDS ORDERED: Medication Not On Formulary EA ([Kerendia] 10 MG) PO SCH (09:00)
[2024-03-17] MEDS: MAGNESIUM OXIDE 400 MG TABLET PO ONE (09:51)
[2024-03-17] MEDS: ACETAMINOPHEN 325 MG TABLET PO PRN (21:17)
[2024-03-18] VITALS (9 sets, daily range): BP systolic 128–197; BP diastolic 54–82; TEMP 97.7–99.1; O2SAT 95–100
[2024-03-18 06:33] LABS: BASOPHILS % (AUTO) 0.1 % (0.0-2.0); HEMATOCRIT 29 % (33-45); HEMOGLOBIN 9.7 g/dL (11.5-14.8); LYMPHOCYTES # (AUTO) 1.3 K/uL (0.8-4.8); LYMPHOCYTES % (AUTO) 28.7 % (20.0-44.0); MEAN CORPUSCULAR HEMOGLOBIN 28 PG (26.0-33.0); MEAN CORPUSCULAR HGB CONC 34 g/dl (31.0-36.0); MEAN CORPUSCULAR VOLUME 82 fL (82-100); MONOCYTES # (AUTO) 0.6 K/uL (0.1-1.30); MONOCYTES % (AUTO) 12.7 % (2.0-12.0); NEUTROPHILS # (AUTO) 2.7 K/uL (1.8-8.9); NEUTROPHILS % (AUTO) 58.5 % (43.0-81.0); PLATELET COUNT (AUTO) 177 K/uL (150-450); RED BLOOD CELL COUNT(AUTO) 3.55 MIL/uL (4.0-5.2); WHITE BLOOD COUNT (AUTO) 4.6 K/uL (4.3-11.0)
[2024-03-18 07:08] LABS: ALANINE AMINOTRANSFERASE 23 U/L (12-78); ALBUMIN 3.1 g/dL (3.4-5.0); ALKALINE PHOSPHATASE 72 U/L (46-116); ASPARTATE AMINOTRANSFERASE 16 U/L (15-37); BILIRUBIN,TOTAL 0.3 mg/dL (0.2-1.0); CALCIUM, SERUM 8.7 mg/dL (8.5-10.1); CARBON DIOXIDE 21 mmol/L (21-32); CHLORIDE 95 mmol/L (98-107); CREATININE 1.4 mg/dL (0.6-1.3); GLUCOSE 129 mg/dL (74-106); MAGNESIUM 1.5 mg/dL (1.8-2.4); PHOSPHORUS 4.2 mg/dL (2.5-4.9); POTASSIUM 3.9 mmol/L (3.5-5.1); SODIUM SERUM 125 mmol/L (136-145); TOTAL PROTEIN, SERUM 6.6 g/dL (6.4-8.2); UREA NITROGEN, BLOOD 26 mg/dL (7-18)
[2024-03-18] MEDS: VALSARTAN 80 MG TABLET PO SCH (08:24)
[2024-03-18] MEDS: hydrALAZINE HCL 50 MG TABLET PO SCH (08:25)
[2024-03-18] MEDS: MAGNESIUM OXIDE 400 MG TABLET PO ONE (10:39)
[2024-03-18] MEDS ORDERED: DEXTROSE 50%-WATER 50 ML DISP.SYRIN IV PRN (13:00)
[2024-03-18] MEDS: BLOOD SUGAR DIAGNOSTIC 1 EACH STRIP IN SCH (17:30)
[2024-03-18] MEDS: INSULIN REGULAR, HUMAN 100 UNIT/ML 3 ML VIAL SQ PRN (17:32)
[2024-03-19] VITALS: BP 152/50; TEMP 99.3; O2SAT 95
[2024-03-19 04:00] VITALS: BP 175/62; TEMP 98.4; O2SAT 95
[2024-03-19 06:54] LABS: HEMATOCRIT 30 % (33-45); HEMOGLOBIN 9.8 g/dL (11.5-14.8); LYMPHOCYTES # (AUTO) 1.7 K/uL (0.8-4.8); LYMPHOCYTES % (AUTO) 28.3 % (20.0-44.0); MEAN CORPUSCULAR HEMOGLOBIN 27 PG (26.0-33.0); MEAN CORPUSCULAR HGB CONC 32 g/dl (31.0-36.0); MEAN CORPUSCULAR VOLUME 82 fL (82-100); MONOCYTES # (AUTO) 0.7 K/uL (0.1-1.30); MONOCYTES % (AUTO) 11.8 % (2.0-12.0); NEUTROPHILS # (AUTO) 3.6 K/uL (1.8-8.9); NEUTROPHILS % (AUTO) 59.9 % (43.0-81.0); PLATELET COUNT (AUTO) 193 K/uL (150-450); RED BLOOD CELL COUNT(AUTO) 3.69 MIL/uL (4.0-5.2); RED CELL DISTRIBUTION WIDTH 16.3 % (11.5-15.0)
[2024-03-19 08:17] LABS: URIC ACID 7.6 mg/dL (2.6-7.2)
[2024-03-19 08:32] LABS: ALANINE AMINOTRANSFERASE 17 U/L (12-78); ALBUMIN 3.1 g/dL (3.4-5.0); ALKALINE PHOSPHATASE 77 U/L (46-116); ASPARTATE AMINOTRANSFERASE 17 U/L (15-37); BILIRUBIN,TOTAL 0.3 mg/dL (0.2-1.0); CALCIUM, SERUM 8.5 mg/dL (8.5-10.1); CARBON DIOXIDE 20 mmol/L (21-32); CHLORIDE 96 mmol/L (98-107); CREATININE 1.4 mg/dL (0.6-1.3); GLUCOSE 119 mg/dL (74-106); MAGNESIUM 1.7 mg/dL (1.8-2.4); PHOSPHORUS 3.6 mg/dL (2.5-4.9); POTASSIUM 4.1 mmol/L (3.5-5.1); SODIUM SERUM 127 mmol/L (136-145); TOTAL PROTEIN, SERUM 6.5 g/dL (6.4-8.2); UREA NITROGEN, BLOOD 31 mg/dL (7-18)
[2024-03-19 08:33] VITALS: BP 170/66
[2024-03-19] MEDS: MAGNESIUM OXIDE 400 MG TABLET PO ONE (09:57)
[2024-03-19] MEDS ORDERED: FURO-145 PO (11:44)
== END 2024-03-19 11:30 | disposition home or self-care (01) | DRG 291 ==
LOC: ER 13:50 → TELE 16:22 → MED 03-19 11:30
PROVIDERS: ADMIT Student in an Organized Health Care Education/Training Program
DX: I13.0 Hypertensive heart and chronic kidney disease with heart failure and stage 1 through stage 4 chronic kidney disease, or unspecified chronic kidney disease (principal); I50.31 Acute diastolic (congestive) heart failure; M48.54XA Collapsed vertebra, not elsewhere classified, thoracic region, initial encounter for fracture; E87.20 Acidosis, unspecified; N17.9 Acute kidney failure, unspecified; E46 Unspecified protein-calorie malnutrition; E22.2 Syndrome of inappropriate secretion of antidiuretic hormone; K21.9 Gastro-esophageal reflux disease without esophagitis; I25.10 Atherosclerotic heart disease of native coronary artery without angina pectoris; D64.9 Anemia, unspecified; E78.5 Hyperlipidemia, unspecified; E86.1 Hypovolemia; N18.9 Chronic kidney disease, unspecified; Z79.84 Long term (current) use of oral hypoglycemic drugs; Z86.73 Personal history of transient ischemic attack (TIA), and cerebral infarction without residual deficits; Z95.0 Presence of cardiac pacemaker; E83.42 Hypomagnesemia; E11.22 Type 2 diabetes mellitus with diabetic chronic kidney disease; M19.90 Unspecified osteoarthritis, unspecified site; T43.025A Adverse effect of tetracyclic antidepressants, initial encounter; Y92.009 Unspecified place in unspecified non-institutional (private) residence as the place of occurrence of the external cause; Z68.30 Body mass index [BMI] 30.0-30.9, adult
CPT/HCPCS: 36415; 70450-TC; 71045-TC; 73030-TC; 80048-TC; 80053-TC; 80061-TC; 80076-TC; 82728-TC; 82962-TC; 83540-TC; 83735-TC; 83880; 83935-TC; 84100-TC; 84300-TC; 84439-TC; 84443-TC; 84484-TC; 84550-TC; 85025-TC; 85730-TC; 93307-TC; 97110-TC; 97116-TC; 97530-TC; G0378; J0360; J1650; J1815; J1940

== ENCOUNTER 2025-06-19 11:02 | Inpatient (IN) | payer MEDICARE, OTHER ==
[2025-06-19] VITALS (10 sets, daily range): BP systolic 101–149; BP diastolic 51–88; TEMP 97.7–98.1; O2SAT 81–96
[~2025-06-19] VITALS: Ht 157.5 cm; Wt 73.9 kg
[~2025-06-19 11:02] MED LIST changes: +ATOR80TA PO; +CARV25TA PO; -CLOP75TA15 PO; -DOCU-270 PO; +FURO-145 PO; -GABA600T12 PO; -HYDR-3972 PO; +HYDR-4077 PO; +KERENDIA PO; -LOSA100T31 PO; +MEMA5TAB42 PO; -METF-440 PO; -METO25TA6 PO; +MIRT7.5T10 PO; +OLME40TA12 PO; +OMEP20CA15 PO; -OMEP40CA21 PO; -SENN-261 PO; +SITA100T PO; -VALS160T2 PO
[2025-06-19 11:44] LABS: PLATELET COUNT (AUTO) 406 K/uL (150-450); RED BLOOD CELL COUNT(AUTO) 3.29 MIL/uL (4.0-5.2); RED CELL DISTRIBUTION WIDTH 18.5 % (11.5-15.0); WHITE BLOOD COUNT (AUTO) 6.9 K/uL (4.3-11.0)
[2025-06-19] MEDS ORDERED: FUROSEMIDE 40 MG/4 ML VIAL ONE (11:50)
[2025-06-19] MEDS: FUROSEMIDE 40 MG/4 ML VIAL IV ONE (11:52)
[2025-06-19 11:56] LABS: CALCIUM, SERUM 8.2 mg/dL (8.5-10.1); CREATININE 1.4 mg/dL (0.6-1.3); UREA NITROGEN, BLOOD 24 mg/dL (7-18)
[2025-06-19 11:57] LABS: INR 1.17 (0.91-1.10)
[2025-06-19 12:00] LABS: LACTIC ACID 0.8 mmol/L (0.4-2.0)
[2025-06-19 12:01] LABS: SODIUM SERUM 120 mmol/L (136-145)
[2025-06-19 12:10] LABS: ASPARTATE AMINOTRANSFERASE 76 U/L (15-37); NT-PRO BNP 4856 pg/mL (0-125); TOTAL PROTEIN, SERUM 7.1 g/dL (6.4-8.2)
[2025-06-19 12:19] LABS: ABG BASE EXCESS -5.9 mmol/L (-2.0-3.0); ABG OXYGEN SATURATION 99.6 % (94.0-98.0); ABG PCO2 41.4 mmHg (32.0-45.0); ABG PH 7.303 (7.350-7.450); ABG PO2 353.3 mmHg (83.0-108.0); ABG TOTAL HEMOGLOBIN 9.1 G/dL (12.0-16.0); FRACTIONATED INSPIRED OXYGEN 100.0 %; SET RATE, BG 20.0; SITE, ABG RIGHT RADIAL
[2025-06-19] MEDS ORDERED: ALBUTEROL FS 2.5 MG/3 ML VIAL.NEB ONE (12:38)
[2025-06-19] MEDS: ALBUTEROL FS 2.5 MG/3 ML VIAL.NEB NEB ONE (12:40)
[2025-06-19 12:54] LABS: CALCIUM, SERUM 8.2 mg/dL (8.5-10.1); CREATININE 1.4 mg/dL (0.6-1.3); UREA NITROGEN, BLOOD 26.0 mg/dL (7-18)
[2025-06-19 13:02] LABS: SODIUM SERUM 118.0 mmol/L (136-145)
[2025-06-19] MEDS ORDERED: INSULIN REGULAR, HUMAN 100 UNIT/ML 10 ML VIAL ONE (13:19)
[2025-06-19] MEDS ORDERED: CALCIUM CHLORIDE 1,000 MG/10 ML DISP.SYRIN ONE (13:19)
[2025-06-19] MEDS ORDERED: SODIUM ZIRCONIUM CYCLOSILICATE 10 GM POWD.PACK ONE (13:19)
[2025-06-19] MEDS ORDERED: DEXTROSE 50%-WATER 50 ML DISP.SYRIN ONE (13:19)
[2025-06-19] MEDS: CALCIUM CHLORIDE 1,000 MG/10 ML DISP.SYRIN IV ONE (13:21)
[2025-06-19] MEDS: INSULIN REGULAR, HUMAN 100 UNIT/ML 10 ML VIAL IV ONE (13:23)
[2025-06-19] MEDS ORDERED: EPOE1VIA12 SQ (13:27)
[2025-06-19] MEDS ORDERED: FURO40TA5 PO (13:27)
[2025-06-19] MEDS ORDERED: METO25TA6 PO (13:27)
[2025-06-19] MEDS ORDERED: MEMA21CA2 PO (13:27)
[2025-06-19] MEDS ORDERED: ESCI10TA PO (13:27)
[2025-06-19] MEDS ORDERED: TRAM50TA2 PO (13:27)
[2025-06-19] MEDS ORDERED: ATOR40TA PO (13:27)
[2025-06-19] MEDS ORDERED: TERA2CAP4 PO (13:27)
[2025-06-19] MEDS ORDERED: FLUT16SP BNOSTRILS (13:27)
[2025-06-19] MEDS ORDERED: POTA20TA83 PO (13:27)
[2025-06-19] MEDS ORDERED: ALLO100T PO (13:27)
[2025-06-19] MEDS: DEXTROSE 50%-WATER 50 ML DISP.SYRIN IV ONE (13:29)
[2025-06-19] MEDS ORDERED: Z GUARD REMEDY 4 OZ OINT TP PRN (14:00)
[2025-06-19] MEDS ORDERED: ONDANSETRON HCL/PF 4 MG/2 ML VIAL IVP PRN (14:00)
[2025-06-19] MEDS: SODIUM ZIRCONIUM CYCLOSILICATE 10 GM POWD.PACK PO ONE (14:00)
[2025-06-19] MEDS: FUROSEMIDE 40 MG/4 ML VIAL IV SCH (14:17)
[2025-06-19] MEDS: ENOXAPARIN SODIUM 30 MG/0.3 ML DISP.SYRIN SQ SCH (14:18)
[2025-06-19] MEDS ORDERED: DEXTROSE 50%-WATER 50 ML DISP.SYRIN IV PRN (15:00)
[2025-06-19 15:22] LABS: LDL 18 mg/dL (0-99)
[2025-06-19] MEDS: BLOOD SUGAR DIAGNOSTIC 1 EACH STRIP VI SCH (16:56)
[2025-06-19] MEDS: INSULIN REGULAR, HUMAN 100 UNIT/ML 3 ML VIAL SQ PRN (22:10)
[2025-06-20] VITALS (16 sets, daily range): BP systolic 122–153; BP diastolic 43–72; TEMP 98.1–98.8; O2SAT 89–97
[2025-06-20 04:39] LABS: PLATELET COUNT (AUTO) 354 K/uL (150-450); RED BLOOD CELL COUNT(AUTO) 3.16 MIL/uL (4.0-5.2); RED CELL DISTRIBUTION WIDTH 18.4 % (11.5-15.0); WHITE BLOOD COUNT (AUTO) 5.9 K/uL (4.3-11.0)
[2025-06-20 04:55] LABS: ASPARTATE AMINOTRANSFERASE 47 U/L (15-37); CALCIUM, SERUM 8.9 mg/dL (8.5-10.1); CREATININE 1.3 mg/dL (0.6-1.3); PHOSPHORUS 4.5 mg/dL (2.5-4.9); SODIUM SERUM 122 mmol/L (136-145); TOTAL PROTEIN, SERUM 7.0 g/dL (6.4-8.2); UREA NITROGEN, BLOOD 24 mg/dL (7-18)
[2025-06-20] MEDS: Magnesium 1GM/D5W 100ML PREMIX 100 ML IV SCH (07:28)
[2025-06-20] MEDS: BUMETANIDE INJ 8 MG in IV NS 0.9% 48 ML IV ONE (08:20)
[2025-06-20] MEDS: PANTOPRAZOLE 40 MG VIAL IV SCH (08:24)
[2025-06-20] MEDS ORDERED: ALBUTEROL HALF STRENGTH 1.25 MG/3 ML VIAL.NEB NEB PRN (09:30)
[2025-06-20 16:12] LABS: CALCIUM, SERUM 8.8 mg/dL (8.5-10.1); CREATININE 1.3 mg/dL (0.6-1.3); SODIUM SERUM 123.0 mmol/L (136-145); UREA NITROGEN, BLOOD 24.0 mg/dL (7-18)
[2025-06-20] MEDS: *INSULIN REGULAR(HUMULIN R)HUM 100 UNIT/ML VIAL SQ PRN (21:53)
[2025-06-20] MEDS: ACETAMINOPHEN 325 MG TABLET PO PRN (22:32)
[2025-06-21] VITALS (8 sets, daily range): BP systolic 129–145; BP diastolic 41–57; TEMP 97.3–98.6; O2SAT 5–99
[2025-06-21 06:22] LABS: PLATELET COUNT (AUTO) 336 K/uL (150-450); RED BLOOD CELL COUNT(AUTO) 3.18 MIL/uL (4.0-5.2); RED CELL DISTRIBUTION WIDTH 18.3 % (11.5-15.0); WHITE BLOOD COUNT (AUTO) 4.0 K/uL (4.3-11.0)
[2025-06-21 07:06] LABS: ASPARTATE AMINOTRANSFERASE 26.0 U/L (15-37); CALCIUM, SERUM 8.6 mg/dL (8.5-10.1); CREATININE 1.2 mg/dL (0.6-1.3); PHOSPHORUS 3.9 mg/dL (2.5-4.9); SODIUM SERUM 126.0 mmol/L (136-145); TOTAL PROTEIN, SERUM 6.9 g/dL (6.4-8.2); UREA NITROGEN, BLOOD 21.0 mg/dL (7-18)
[2025-06-21] MEDS: PANTOPRAZOLE 40 MG TABLET.DR PO SCH (09:23)
[2025-06-21] MEDS: POTASSIUM CHLORIDE 20 MEQ TAB.PRT.SR PO SCH (10:06)
[2025-06-21] MEDS: FUROSEMIDE 40 MG/4 ML VIAL IV SCH (10:07)
[2025-06-22] VITALS (8 sets, daily range): BP systolic 134–162; BP diastolic 48–66; TEMP 98–99; O2SAT 94–99
[2025-06-22 07:00] LABS: PLATELET COUNT (AUTO) 332 K/uL (150-450); RED BLOOD CELL COUNT(AUTO) 3.43 MIL/uL (4.0-5.2); RED CELL DISTRIBUTION WIDTH 18.8 % (11.5-15.0); WHITE BLOOD COUNT (AUTO) 4.9 K/uL (4.3-11.0)
[2025-06-22 07:20] LABS: ASPARTATE AMINOTRANSFERASE 21.0 U/L (15-37); CALCIUM, SERUM 8.6 mg/dL (8.5-10.1); CREATININE 1.4 mg/dL (0.6-1.3); PHOSPHORUS 3.5 mg/dL (2.5-4.9); SODIUM SERUM 130.0 mmol/L (136-145); TOTAL PROTEIN, SERUM 7.0 g/dL (6.4-8.2); UREA NITROGEN, BLOOD 22.0 mg/dL (7-18)
[2025-06-22] MEDS: FUROSEMIDE 100 MG/10 ML VIAL IV SCH (09:35)
[2025-06-23] VITALS (7 sets, daily range): BP systolic 147–161; BP diastolic 62–93; TEMP 97.5–99; O2SAT 93–97
[2025-06-23 08:11] LABS: PLATELET COUNT (AUTO) 370 K/uL (150-450); RED BLOOD CELL COUNT(AUTO) 3.82 MIL/uL (4.0-5.2); RED CELL DISTRIBUTION WIDTH 19.6 % (11.5-15.0); WHITE BLOOD COUNT (AUTO) 5.3 K/uL (4.3-11.0)
[2025-06-23 09:19] LABS: ASPARTATE AMINOTRANSFERASE 23.0 U/L (15-37); CALCIUM, SERUM 9.5 mg/dL (8.5-10.1); CREATININE 1.3 mg/dL (0.6-1.3); PHOSPHORUS 3.3 mg/dL (2.5-4.9); SODIUM SERUM 136.0 mmol/L (136-145); TOTAL PROTEIN, SERUM 7.7 g/dL (6.4-8.2); UREA NITROGEN, BLOOD 21.0 mg/dL (7-18)
[2025-06-23] MEDS: POTASSIUM CHLORIDE 20 MEQ TAB.PRT.SR PO SCH (09:55)
[2025-06-23] MEDS: FUROSEMIDE 100 MG/10 ML VIAL IV SCH (09:55)
[2025-06-23 18:39] LABS: APPEARANCE,URINE CLEAR (CLEAR); BLOOD, URINE 3+ Ery/uL (NEGATIVE); LEUKOCYTE ESTERASE ,URINE 1+ (NEGATIVE); NITRITE, URINE NEGATIVE (NEGATIVE); UGLUCOSE NEGATIVE (NEGATIVE)
[2025-06-23 18:47] LABS: CREATININE, URINE 40.1 MG/DL (30.0-125.0); URINE SODIUM, RANDOM 86.0 mmol/l (40-220); URINE TOTAL PROTEIN 29.5 mg/dL (0-11.9)
[2025-06-23 19:03] LABS: ADD URINE CULTURE YES
[2025-06-23 19:04] LABS: SQUAMOUS EPITHELIAL CELL,UR Moderate /HPF (None Seen)
[2025-06-23 19:08] LABS: EOSINOPHIL,URINE None Seen
[2025-06-24 07:00] VITALS: BP 145/67; TEMP 98.4; O2SAT 95
[2025-06-24 11:30] VITALS: BP 162/80; TEMP 97.7; O2SAT 97
[2025-06-24 16:00] VITALS: BP 150/71; TEMP 98.4; O2SAT 98
[2025-06-24 17:41] LABS: PLATELET COUNT (AUTO) 399 K/uL (150-450); RED BLOOD CELL COUNT(AUTO) 4.31 MIL/uL (4.0-5.2); RED CELL DISTRIBUTION WIDTH 20.6 % (11.5-15.0); WHITE BLOOD COUNT (AUTO) 7.4 K/uL (4.3-11.0)
[2025-06-24 19:16] LABS: ASPARTATE AMINOTRANSFERASE 23.0 U/L (15-37); CALCIUM, SERUM 9.3 mg/dL (8.5-10.1); CREATININE 1.9 mg/dL (0.6-1.3); PHOSPHORUS 3.4 mg/dL (2.5-4.9); SODIUM SERUM 134.0 mmol/L (136-145); TOTAL PROTEIN, SERUM 8.4 g/dL (6.4-8.2); UREA NITROGEN, BLOOD 27.0 mg/dL (7-18)
[2025-06-24 20:00] VITALS: BP 154/72; TEMP 98.1; O2SAT 97
[2025-06-24 20:34] VITALS: BP 154/72; TEMP 98.1; O2SAT 97
[2025-06-24 20:51] VITALS: BP 128/51; TEMP 98.6; O2SAT 97
[2025-06-24] MEDS: TERAZOSIN HCL 1 MG CAPSULE PO SCH (21:57)
[2025-06-25 07:00] VITALS: BP 130/77; TEMP 98.1; O2SAT 96
[2025-06-25] MEDS: ATORVASTATIN 40 MG TABLET PO SCH (08:40)
[2025-06-25] MEDS: ESCITALOPRAM OXALATE (10 MG) 10 MG TABLET PO SCH (08:40)
[2025-06-25] MEDS: FLUTICASONE PROPIONATE 16 GM BOTTLE NS SCH (08:40)
[2025-06-25] MEDS: METOPROLOL TARTRATE 25 MG TABLET PO SCH (08:41)
[2025-06-25] MEDS: MEMANTINE HCL 5 MG TABLET PO SCH (08:42)
[2025-06-25] MEDS: ALLOPURINOL 100 MG TABLET PO SCH (08:48)
[2025-06-25] MEDS ORDERED: POLYETHYLENE GLYCOL 3350 17 GM POWD.PACK PO PRN (09:00)
[2025-06-25 10:38] LABS: PLATELET COUNT (AUTO) 343 K/uL (150-450); RED BLOOD CELL COUNT(AUTO) 4.07 MIL/uL (4.0-5.2); RED CELL DISTRIBUTION WIDTH 20.1 % (11.5-15.0); WHITE BLOOD COUNT (AUTO) 6.2 K/uL (4.3-11.0)
[2025-06-25 11:04] LABS: CALCIUM, SERUM 9.2 mg/dL (8.5-10.1); CREATININE 2.1 mg/dL (0.6-1.3); PHOSPHORUS 4.1 mg/dL (2.5-4.9); SODIUM SERUM 133.0 mmol/L (136-145); UREA NITROGEN, BLOOD 28.0 mg/dL (7-18)
[2025-06-25 15:00] VITALS: BP 153/58; TEMP 97.9; O2SAT 97
[2025-06-25] MEDS: EPOETIN ALFA (10,000 UNIT) 10,000 UNIT/ML VIAL SQ SCH (15:27)
[2025-06-25 18:33] LABS: CALCIUM, SERUM 9.0 mg/dL (8.5-10.1); CREATININE 1.9 mg/dL (0.6-1.3); SODIUM SERUM 131.0 mmol/L (136-145); UREA NITROGEN, BLOOD 29.0 mg/dL (7-18)
[2025-06-25 19:00] LABS: APPEARANCE,URINE CLEAR (CLEAR); BLOOD, URINE 1+ Ery/uL (NEGATIVE); LEUKOCYTE ESTERASE ,URINE 2+ (NEGATIVE); NITRITE, URINE NEGATIVE (NEGATIVE); UGLUCOSE NEGATIVE (NEGATIVE)
[2025-06-25 19:08] LABS: CREATININE, URINE 257.5 MG/DL (30.0-125.0); URINE SODIUM, RANDOM 9.0 mmol/l (40-220); URINE TOTAL PROTEIN 54.0 mg/dL (0-11.9)
[2025-06-25 19:29] LABS: ADD URINE CULTURE YES
[2025-06-25 20:00] VITALS: BP 131/68; TEMP 98.1; O2SAT 96
[2025-06-25 21:16] LABS: EOSINOPHIL,URINE None Seen
[2025-06-25] MEDS: TEMAZEPAM 15 MG CAPSULE PO PRN (21:52)
[2025-06-26 08:00] VITALS: BP 149/67; TEMP 97.9; O2SAT 97
[2025-06-26 08:41] VITALS: BP 149/67
== END 2025-06-26 11:45 | disposition home health service (06) | DRG 291 ==
LOC: ER 11:09 → ICU 13:07 → TELE 06-20 14:30 → MED 06-23 10:01
PROC: 5A09357 Assistance with Respiratory Ventilation, Less than 24 Consecutive Hours, Continuous Positive Airway Pressure (ICD-10-PCS; principal; 2025-06-19)
DX: I13.0 Hypertensive heart and chronic kidney disease with heart failure and stage 1 through stage 4 chronic kidney disease, or unspecified chronic kidney disease (principal); I50.33 Acute on chronic diastolic (congestive) heart failure; J96.01 Acute respiratory failure with hypoxia; E87.1 Hypo-osmolality and hyponatremia; M48.54XA Collapsed vertebra, not elsewhere classified, thoracic region, initial encounter for fracture; E86.1 Hypovolemia; N17.9 Acute kidney failure, unspecified; D64.9 Anemia, unspecified; E11.22 Type 2 diabetes mellitus with diabetic chronic kidney disease; I48.91 Unspecified atrial fibrillation; F03.90 Unspecified dementia, unspecified severity, without behavioral disturbance, psychotic disturbance, mood disturbance, and anxiety; N18.9 Chronic kidney disease, unspecified; E78.5 Hyperlipidemia, unspecified; E87.5 Hyperkalemia; E83.42 Hypomagnesemia; I25.10 Atherosclerotic heart disease of native coronary artery without angina pectoris; K21.9 Gastro-esophageal reflux disease without esophagitis; M19.90 Unspecified osteoarthritis, unspecified site; T50.2X5A Adverse effect of carbonic-anhydrase inhibitors, benzothiadiazides and other diuretics, initial encounter; Y92.89 Other specified places as the place of occurrence of the external cause; Z79.84 Long term (current) use of oral hypoglycemic drugs; Z79.899 Other long term (current) drug therapy; Z95.810 Presence of automatic (implantable) cardiac defibrillator
CPT/HCPCS: 36415; 36600; 71045-TC; 71250-TC; 80048-TC; 80053-TC; 80061-TC; 80076-TC; 81001; 82533; 82570-TC; 82803-TC; 82962-TC; 83605-TC; 83735-TC; 83880; 84100-TC; 84300-TC; 84443-TC; 84484-TC; 84550-TC; 85025-TC; 85730-TC; 87040-TC; 87081-TC; 87086-TC; 93307-TC; 97110-TC; 97112-TC; 97530-TC; A4223; G0378; J0885; J1650; J1815; J1938; J2470; J3475; J3490; J7050